=== PATIENT | female | born 1970 | race Caucasian/White ===

== ENCOUNTER 2017-09-27 05:08 | Inpatient (IN) ==
--- NOTE | 2017-09-27 05:49 | Emergency Department Note ---
Disposition Clinical Impression: Periumbilical pain, Epigastric pain Nausea and vomiting Qualifiers: Vomiting type: unspecified Vomiting Intractability: non-intractable Qualified Code(s): R11.2 - Nausea with vomiting, unspecified Disposition: Still a Patient Condition: Good Referrals: Reza Gomes DO [Primary Care Provider] - Forms: ED Satisfaction Letter, Work/School Release Time of Disposition: 07:23 Abdominal Pain HPI - General Chief Complaint: ED Abdominal Pain Stated Complaint: abdominal pain Time Seen by Provider: 09/27/17 05:14 Source: patient, family Mode of arrival: ambulatory Nursing Notes Reviewed: Yes Vital Signs Reviewed: Yes - History of Present Illness HPI Narrative: Patient is a 46 yo female with PMHx of castro syndrome and Barretts esophagus. She presents today due to periumbilical and epigastric pain that woke her up out of sleep about 5 hours prior to arrival. Patient admits to occasional abdominal discomfort over the past few days as well. She admits to nausea, vomiting, and possibly one episode of coffee ground emesis. She denies any chest pain, shortness of breath, fevers, diarrhea, blood in stool. denies any history of diverticulitis, GERD, gastric ulcers, gastritis. 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 She has had appendectomy, cholecystectomy, partial hysterectomy. Pain Scale: 8 - Related Data Home Medications Medication Instructions Recorded Confirmed Estrogens, Conjugated [Premarin] 0.9 mg PO DAILY 06/28/16 09/27/17 Furosemide [Lasix] 20 mg PO DAILY 09/27/17 09/27/17 Allergies Allergy/AdvReac Type Severity Reaction Status Date / Time morphine AdvReac Nausea Verified 09/27/17 05:10 All systems ED: reviewed and negative except as stated. Constitutional: Denies: fever Cardiovascular: Denies: chest pain, palpitations Respiratory: Denies: cough, dyspnea, wheezes Gastrointestinal: Reports: abdominal pain, nausea, vomiting, other (coffe ground emesis). Denies: diarrhea, constipation Genitourinary: Denies: urgency, dysuria, frequency Neurological: Denies: headache, weakness, numbness Abdominal Pain PMH - Past Medical History Medical history: Reports: kidney stones Female Surgical History: Reports: cholecystectomy, hysterectomy Psychiatric history: Reports: no psych history - Social History Smoking status: Never smoker Alcohol use: Reports: none Drug use: Reports: none Physical Exam - General Limitations: no limitations General appearance: alert - Head Head exam: atraumatic, normocephalic, normal inspection - Eye Eye exam: Present: normal appearance, PERRL, EOMI - ENT ENT exam: normal exam, normal oropharynx, mucous membranes moist - Neck Neck exam: Present: normal inspection, full ROM, trachea midline - Chest Chest inspection: Present: normal inspection, symmetric chest wall rise - Respiratory Respiratory exam: Present: normal lung sounds bilaterally - Cardiovascular Cardiovascular exam: Present: regular rate, normal rhythm, normal heart sounds - Abdominal Exam Abdominal exam: Present: soft, tenderness (mild to moderate epigastric and periumbilical tenderness ). Absent: distention, guarding, rebound, rigidity, Herrera's sign, tenderness at McBurney's Point - Extremities Exam Extremities exam: Present: normal inspection, full ROM. Absent: tenderness, pedal edema - Neurological Exam Neurological exam: Present: alert, oriented X3 - Psychiatric Psychiatric exam: Present: normal affect, normal mood - Skin Skin exam: Present: warm, dry, intact, normal color Course Course Narrative: Vitals WNL on my exam. Physical exam shows mild to moderate epigastric and periumbilical tenderness. The rest of the physical exam was fairly benign. Patient was offered GI cocktail and she refused at this time. She was willing to try fentanyl and zofran for pain and nausea control. I also ordered NS bolus. Basic bloodwork, CBC, BMP, LFTs, UA ordered. UA negative. Basic bloodwork still pending. CT abd and pelvis with IV contrast ordered for further eval of abdominal pain - currently pending. Patient will be signed out to day team Dr. Deangelo Knox and Dr. Cata Albright for further care. Vital Signs Temperature 97.4 F L 09/27/17 05:11 Pulse Rate 100 09/27/17 05:11 Respiratory Rate 16 09/27/17 05:11 Blood Pressure 121/83 09/27/17 05:11 O2 Sat by Pulse Oximetry 99 09/27/17 05:11 Temperature 97.4 F L 09/27/17 05:11 Pulse Rate 81 09/27/17 08:24 Respiratory Rate 18 09/27/17 08:24 Blood Pressure 117/78 09/27/17 08:24 O2 Sat by Pulse Oximetry 98 09/27/17 08:24 Oxygen Delivery Oxygen Delivery Room Air Abdominal Pain - MDM Narrative Medical decision making narrative: Vitals WNL on my exam. Physical exam shows mild to moderate epigastric and periumbilical tenderness. The rest of the physical exam was fairly benign. Patient was offered GI cocktail and she refused at this time. She was willing to try fentanyl and zofran for pain and nausea control. I also ordered NS bolus. Basic bloodwork, CBC, BMP, LFTs, UA ordered. UA negative. Basic bloodwork still pending. CT abd and pelvis with IV contrast ordered for further eval of abdominal pain - currently pending. Patient will be signed out to day team Dr. Deangelo Knox and Dr. Cata Albright for further care. - Medical Records Medical records reviewed: Yes I reviewed the patient's medical records. - Lab Data Lab results reviewed: Yes I reviewed the patient's lab results. Result diagrams: 09/27/17 07:39 09/27/17 05:58 Lab Results 09/27/17 09/27/17 09/27/17 Range/Units 05:18 05:58 05:58 WBC 28.2 H (4.3-11.1) K/mcL RBC 4.66 (3.82-4.97) M/mcL Hgb 13.4 (11.5-15.4) g/dL Hct 39.5 (35.3-44.9) % MCV 84.8 (83.0-100.0) fL MCH 28.8 (28.0-33.3) pg MCHC 33.9 (31.6-35.5) g/dL RDW 14.9 H (11.5-14.5) % Plt Count 1069 H (140-400) K/mcL MPV 9.9 (9.4-12.4) fL Seg Neutrophils % 74.0 % Band Neutrophils % 2.0 (0-4) % Lymphocytes % 16.0 % Monocytes % % Eosinophils % % Basophils % 4.0 % Myelocytes % 4.0 H (0) % Neutrophils # 21.4 H (1.6-8.9) K/mcL Lymphocytes # 4.5 (0.6-4.6) K/mcL Monocytes # (0.0-1.3) K/mcL Eosinophils # (0.0-0.6) K/mcL Basophils # 1.1 H (0.0-0.2) K/mcL Platelet Estimate Marked Increase H (Normal) Hypochromasia Present A (Not Present) Sodium 138 (136-145) mEq/L Potassium 3.6 (3.5-5.1) mEq/L Chloride 104 (98-107) mEq/L Carbon Dioxide 23 (23-29) mEq/L BUN 20 (6-20) mg/dL Creatinine 0.75 (0.60-1.20) mg/dL Est GFR ( Amer) > 60 (> 60) Est GFR (Non-Af Amer) > 60 (> 60) BUN/Creatinine Ratio 27 H (6-26) Glucose 109 H (70-105) mg/dL Calculated Osmolality 289 (280-300) Lactic Acid (0.5-2.2) mmol/L Calcium 9.8 (8.6-10.3) mg/dL Total Bilirubin 0.5 (0.3-1.0) mg/dL Direct Bilirubin 0.1 (0.0-0.2) mg/dL Indirect Bilirubin 0.4 (0.0-1.2) mg/dL AST 15 (13-39) Units/L ALT 10 (7-52) Units/L Alkaline Phosphatase 49 (34-104) Units/L Serum Total Protein 6.9 (6.4-8.9) g/dL Albumin 4.2 (3.5-5.7) g/dL Globulin 2.7 (2.4-3.5) g/dL Albumin/Globulin Ratio 1.6 (1.1-2.2) Amylase 34 (29-103) Units/L Lipase 8 L (11-82) Units/L Urine Color Yellow (Yellow) Urine Clarity Clear (Clear) Urine pH 8.5 H (5.0-8.0) pH Units Ur Specific [place] 1.021 (1.010-1.025) Urine Protein 30 H (Neg-Trace) mg/dL Urine Glucose (UA) Normal (Normal) mg/dL Urine Ketones Negative (Negative) mg/dL Urine Blood Negative (Negative) Urine Nitrite Negative (Negative) Urine Bilirubin Negative (Negative) Urine Urobilinogen Normal (Normal) mg/dL Ur Leukocyte Esterase Negative (Negative) Urine Microscopic RBC 0-3 (0-3) per hpf Urine Microscopic WBC 0-3 (0-3) per hpf Ur Squamous Epith Cells Moderate H (None-Few) per lpf Urine Bacteria None Seen (None-Few) per hpf Hyaline Casts None Seen (None-Few) per lpf Ur Culture Indicated? NO (NO) 09/27/17 09/27/17 Range/Units 07:39 07:39 WBC 29.6 H (4.3-11.1) K/mcL RBC 4.44 (3.82-4.97) M/mcL Hgb 12.8 (11.5-15.4) g/dL Hct 38.3 (35.3-44.9) % MCV 86.3 (83.0-100.0) fL MCH 28.8 (28.0-33.3) pg MCHC 33.4 (31.6-35.5) g/dL RDW 14.9 H (11.5-14.5) % Plt Count 1012 H (140-400) K/mcL MPV 9.8 (9.4-12.4) fL Seg Neutrophils % 84.0 % Band Neutrophils % (0-4) % Lymphocytes % 12.0 % Monocytes % 2.0 % Eosinophils % 2.0 % Basophils % % Myelocytes % (0) % Neutrophils # 24.9 H (1.6-8.9) K/mcL Lymphocytes # 3.6 (0.6-4.6) K/mcL Monocytes # 0.6 (0.0-1.3) K/mcL Eosinophils # 0.6 (0.0-0.6) K/mcL Basophils # (0.0-0.2) K/mcL Platelet Estimate Marked Increase H (Normal) Hypochromasia (Not Present) Sodium (136-145) mEq/L Potassium (3.5-5.1) mEq/L Chloride (98-107) mEq/L Carbon Dioxide (23-29) mEq/L BUN (6-20) mg/dL Creatinine (0.60-1.20) mg/dL Est GFR ( Amer) (> 60) Est GFR (Non-Af Amer) (> 60) BUN/Creatinine Ratio (6-26) Glucose (70-105) mg/dL Calculated Osmolality (280-300) Lactic Acid 0.8 (0.5-2.2) mmol/L Calcium (8.6-10.3) mg/dL Total Bilirubin (0.3-1.0) mg/dL Direct Bilirubin (0.0-0.2) mg/dL Indirect Bilirubin (0.0-1.2) mg/dL AST (13-39) Units/L ALT (7-52) Units/L Alkaline Phosphatase (34-104) Units/L Serum Total Protein (6.4-8.9) g/dL Albumin (3.5-5.7) g/dL Globulin (2.4-3.5) g/dL Albumin/Globulin Ratio (1.1-2.2) Amylase (29-103) Units/L Lipase (11-82) Units/L Urine Color (Yellow) Urine Clarity (Clear) Urine pH (5.0-8.0) pH Units Ur Specific [place] (1.010-1.025) Urine Protein (Neg-Trace) mg/dL Urine Glucose (UA) (Normal) mg/dL Urine Ketones (Negative) mg/dL Urine Blood (Negative) Urine Nitrite (Negative) Urine Bilirubin (Negative) Urine Urobilinogen (Normal) mg/dL Ur Leukocyte Esterase (Negative) Urine Microscopic RBC (0-3) per hpf Urine Microscopic WBC (0-3) per hpf Ur Squamous Epith Cells (None-Few) per lpf Urine Bacteria (None-Few) per hpf Hyaline Casts (None-Few) per lpf Ur Culture Indicated? (NO) S.B.A.R. - S.B.A.R. Situation: Demographics, MOA Background: Presenting Complaint, Relevant PMH, Meds, & Allergies Assessment: Vital Signs, Course and respsone to treatment, Exam Concerns, Patient/Family Expectation, Pertinant Lab Results, Outstanding Labs Recommendation: Barrier(s) to disposition, Recommendation based on pending studies, treatments, or consults S.B.A.R. Report Given to: Dr. Cata Albright, Dr. Madison Knox S.B.A.R. Repor Time: 07:23 Attestation Statement - Attestation Attestation: I, Ignacio Savage MD, personally evaluated this patient and discussed their management with the resident physician. I reviewed the resident's note and agree with the documented findings, medical decision making, and plan of care. 46-year-old female presents to the emergency department with a complaint of awakening from sleep about 1:30 AM today with severe periumbilical abdominal pain and also epigastric abdominal pain. The pain does radiate to the back. Associated with nausea and vomiting. Patient states she has had some mild lower abdominal discomfort for the past few days but not severe pain like this. No prior history of similar episodes. No fever. No urinary symptoms. On examination patient is a well-developed well-nourished well-appearing female in no acute distress. She is alert and oriented 3. There is no cyanosis or diaphoresis. Breath sounds are clear and equal bilaterally. Heart regular rate and rhythm. Abdomen is soft with decreased bowel sounds. There is moderate epigastric and periumbilical tenderness with mild guarding. No rebound tenderness. No CVA tenderness. Workup initiated. At shift change patient is signed out to the oncoming dayshift team, Dr. Deangelo Knox and Dr. Cata Albright.
[2017-09-27 05:52] LABS: Bilirubin,Urine Negative (Negative); Blood,Urine Negative (Negative); Clarity,Urine Clear (Clear); Color,Urine Yellow (Yellow); Glucose,Urine (UA) Normal (Normal); Ketones,Urine Negative (Negative); Leukocyte Esterase,Urine Negative (Negative); Nitrite,Urine Negative (Negative); PH,Urine 8.5 pH Units (5.0-8.0); Protein,Urine 30 mg/dL (Neg-Trace); Specific Gravity,Urine 1.021 (1.010-1.025); Urobilinogen,Urine Normal (Normal)
[2017-09-27 05:54] LABS: Bacteria,Urine None Seen per hpf (None-Few); Hyaline Casts,Urine None Seen per lpf (None-Few); RBC,Urine 0-3 per hpf (0-3); Squamous Epithelial Cell,Urine Moderate per lpf (None-Few); WBC,Urine 0-3 per hpf (0-3)
[2017-09-27] MEDS ORDERED: 0.9 % Sodium Chloride 1,000 ML IVC ONE (06:09)
[2017-09-27] MEDS ORDERED: *HR* FentaNYL (PF) 100 MCG/2 ML VIAL IVP ONE ×2 (06:09→08:33)
[2017-09-27] MEDS ORDERED: Ondansetron 4 MG/2 ML VIAL IVP ONE ×2 (06:09→08:24)
[2017-09-27 06:17] LABS: Hematocrit 39.5 % (35.3-44.9); Hemoglobin 13.4 g/dL (11.5-15.4); Mean Corpuscular HGB Conc 33.9 g/dL (31.6-35.5); Mean Corpuscular Hemoglobin 28.8 pg (28.0-33.3); Mean Corpuscular Volume 84.8 fL (83.0-100.0); Mean Platelet Volume 9.9 fL (9.4-12.4); Platelet Count 1069 K/mcL (140-400); Red Blood Count 4.66 M/mcL (3.82-4.97); Red Cell Distribution Width 14.9 % (11.5-14.5)
[2017-09-27 06:52] LABS: Basophils # 1.1 K/mcL (0.0-0.2); Hypochromasia Present (Not Present); Lymphocytes # 4.5 K/mcL (0.6-4.6); Neutrophils # 21.4 K/mcL (1.6-8.9)
[2017-09-27 06:53] LABS: Platelet Estimate Marked Increase (Normal)
[2017-09-27 07:22] LABS: Alanine Aminotransferase 10 Units/L (7-52); Albumin 4.2 g/dL (3.5-5.7); Albumin/Globulin Ratio 1.6 (1.1-2.2); Alkaline Phosphatase 49 Units/L (34-104); Amylase 34 Units/L (29-103); Aspartate Amino Transferase 15 Units/L (13-39); BUN/Creatinine Ratio 27 (6-26); Bilirubin,Direct 0.1 mg/dL (0.0-0.2); Bilirubin,Indirect 0.4 mg/dL (0.0-1.2); Bilirubin,Total 0.5 mg/dL (0.3-1.0); Blood Urea Nitrogen 20 mg/dL (6-20); Calcium 9.8 mg/dL (8.6-10.3); Carbon Dioxide 23 mEq/L (23-29); Chloride 104 mEq/L (98-107); Globulin 2.7 g/dL (2.4-3.5); Glucose 109 mg/dL (70-105); Lipase 8 Units/L (11-82); Osmolality,Calculated 289 (280-300); Potassium 3.6 mEq/L (3.5-5.1); Sodium 138 mEq/L (136-145); Total Protein 6.9 g/dL (6.4-8.9); eGFR For African Americans > 60 (> 60); eGFR For Non-African Americans > 60 (> 60)
--- NOTE | 2017-09-27 07:39 | Emergency Department Note ---
Disposition Clinical Impression: Ileus, High platelet count Leukocytosis Qualifiers: Leukocytosis type: unspecified Qualified Code(s): D72.829 - Elevated white blood cell count, unspecified Disposition: Admitted As Inpatient Condition: Good Time of Disposition: 09:34 General Adult HPI - General Chief complaint: ED Abdominal Pain Stated complaint: abdominal pain Time Seen by Provider: 09/27/17 05:14 Source: patient, family Mode of arrival: ambulatory Limitations: no limitations Nursing Notes Reviewed: Yes Vital Signs Reviewed: Yes - History of Present Illness HPI Narrative: 46-year-old female with known past medical history of Keane's esophagus and Linch syndrome presenting to the emergency Department chief complaint of periumbilical abdominal pain. Patient states her abdominal pain woke her up out of her sleep at approximately 3 AM. She states the pain was 10 out of 10. She has had nausea and vomiting. She was concerned the vomit was coffee-ground but also states she had lots of broccoli last evening and thought this could be associated with that. She denies any blood in her her vomit or blood in her stool. Denies any tar-colored stools. Patient states last colonoscopy was in June. She is due for her endoscopy soon. She follows with Dr. De La Cruz. Patient discloses an appendectomy, cholecystectomy approximately 16 years ago and hysterectomy. Pain Scale: 8 - Related Data Home Medications Medication Instructions Recorded Confirmed Estrogens, Conjugated [Premarin] 0.9 mg PO DAILY 06/28/09/27/17 Furosemide [Lasix] 20 mg PO DAILY 09/27/17 09/27/17 Allergies Allergy/AdvReac Type Severity Reaction Status Date / Time morphine AdvReac Nausea Verified 09/27/17 05:10 All systems ED: reviewed and negative except as stated. Constitutional: Denies: fever Cardiovascular: Denies: chest pain, palpitations Respiratory: Denies: cough, dyspnea, wheezes Gastrointestinal: Reports: abdominal pain, nausea, vomiting, other (coffe ground emesis). Denies: diarrhea, constipation Genitourinary: Denies: urgency, dysuria, frequency Neurological: Denies: headache, weakness, numbness Past Medical History - Past Medical History Attestation: Yes The following information was validated with the patient. Medical history: Reports: kidney stones Surgical history: Reports: , cholecystectomy, hysterectomy Psychiatric history: Reports: no psych history - Social History Smoking Status: Never smoker Alcohol use: Reports: none Drug use: Reports: none Physical Exam - General Limitations: no limitations General appearance: alert, in no apparent distress - Head Head exam: atraumatic, normocephalic, normal inspection - Eye Eye exam: Present: normal appearance. Absent: scleral icterus, conjunctival injection - ENT ENT exam: normal exam, mucous membranes moist - Neck Neck exam: Present: normal inspection, full ROM. Absent: tenderness, meningismus - Chest Chest inspection: Present: normal inspection, symmetric chest wall rise. Absent : tenderness, rash - Respiratory Respiratory exam: Present: normal lung sounds bilaterally. Absent: respiratory distress, wheezes - Cardiovascular Cardiovascular exam: Present: regular rate, normal rhythm, normal heart sounds - Abdominal Exam Abdominal exam: Present: soft, tenderness. Absent: distention, guarding, rebound, rigidity, organomegaly Abdominal tenderness: Present: moderate (periumbilical) - Extremities Exam Extremities exam: Present: normal inspection, full ROM - Neurological Exam Neurological exam: Present: alert, oriented X3 - Psychiatric Psychiatric exam: Present: normal affect, normal mood - Skin Skin exam: Present: warm, intact Course Course Narrative: 46-year-old female presenting to the emergency Department chief complaint of periumbilical pain. Patient has no known Castro syndrome. On exam patient has moderate to severe abdominal pain in the periumbilical area. Her symptoms are under control with fentanyl and Zofran. Patient is alert and oriented 3 in the room with stable vital signs. We will obtain basic lab work including CBC, CMP, lipase along with CT of abdomen and pelvis with IV contrast. Disposition pending these results. Patient agrees with this plan. - Reevaluation(s) Reevaluation #1: Initial CBC shows elevated white blood cell count and platelets. This was redrawn and recently run and still has elevated white blood cell count at 29.6 and platelets greater than 1000. Patient states she has never been told she has high platelets. CT of the abdomen and pelvis shows ileus with enteritis versus small bowel obstruction with no definitive transition point. Lactic acid within normal limits. Patient's pain control at this time. We will plan to admit the patient for further evaluation of her ileus and elevated white blood cell count and platelets. Patient is alert and oriented 3 in the room with stable vital signs. She agrees this plan. I spoke with the admitting hospitalist Dr. Greer who agrees to accept the patient at this time. Vital Signs Temperature 97.4 F L 09/27/17 05:11 Pulse Rate 100 09/27/17 05:11 Respiratory Rate 16 09/27/17 05:11 Blood Pressure 121/83 09/27/17 05:11 O2 Sat by Pulse Oximetry 99 09/27/17 05:11 Temperature 97.4 F L 09/27/17 05:11 Pulse Rate 81 09/27/17 08:24 Respiratory Rate 16 09/27/17 09:37 Blood Pressure 109/72 09/27/17 09:37 O2 Sat by Pulse Oximetry 98 09/27/17 08:24 Oxygen Delivery Oxygen Delivery Room Air Medical Decision Making - Lab Data Lab results reviewed: Yes I reviewed the patient's lab results. Result diagrams: 09/27/17 07:39 09/27/17 05:58 Lab Results 09/27/17 09/27/17 09/27/17 Range/Units 05:18 05:58 05:58 WBC 28.2 H (4.3-11.1) K/mcL RBC 4.66 (3.82-4.97) M/mcL Hgb 13.4 (11.5-15.4) g/dL Hct 39.5 (35.3-44.9) % MCV 84.8 (83.0-100.0) fL MCH 28.8 (28.0-33.3) pg MCHC 33.9 (31.6-35.5) g/dL RDW 14.9 H (11.5-14.5) % Plt Count 1069 H (140-400) K/mcL MPV 9.9 (9.4-12.4) fL Seg Neutrophils % 74.0 % Band Neutrophils % 2.0 (0-4) % Lymphocytes % 16.0 % Monocytes % % Eosinophils % % Basophils % 4.0 % Myelocytes % 4.0 H (0) % Neutrophils # 21.4 H (1.6-8.9) K/mcL Lymphocytes # 4.5 (0.6-4.6) K/mcL Monocytes # (0.0-1.3) K/mcL Eosinophils # (0.0-0.6) K/mcL Basophils # 1.1 H (0.0-0.2) K/mcL Platelet Estimate Marked Increase H (Normal) Hypochromasia Present A (Not Present) Sodium 138 (136-145) mEq/L Potassium 3.6 (3.5-5.1) mEq/L Chloride 104 (98-107) mEq/L Carbon Dioxide 23 (23-29) mEq/L BUN 20 (6-20) mg/dL Creatinine 0.75 (0.60-1.20) mg/dL Est GFR ( Amer) > 60 (> 60) Est GFR (Non-Af Amer) > 60 (> 60) BUN/Creatinine Ratio 27 H (6-26) Glucose 109 H (70-105) mg/dL Calculated Osmolality 289 (280-300) Lactic Acid (0.5-2.2) mmol/L Calcium 9.8 (8.6-10.3) mg/dL Total Bilirubin 0.5 (0.3-1.0) mg/dL Direct Bilirubin 0.1 (0.0-0.2) mg/dL Indirect Bilirubin 0.4 (0.0-1.2) mg/dL AST 15 (13-39) Units/L ALT 10 (7-52) Units/L Alkaline Phosphatase 49 (34-104) Units/L Serum Total Protein 6.9 (6.4-8.9) g/dL Albumin 4.2 (3.5-5.7) g/dL Globulin 2.7 (2.4-3.5) g/dL Albumin/Globulin Ratio 1.6 (1.1-2.2) Amylase 34 (29-103) Units/L Lipase 8 L (11-82) Units/L Urine Color Yellow (Yellow) Urine Clarity Clear (Clear) Urine pH 8.5 H (5.0-8.0) pH Units Ur Specific [place] 1.021 (1.010-1.025) Urine Protein 30 H (Neg-Trace) mg/dL Urine Glucose (UA) Normal (Normal) mg/dL Urine Ketones Negative (Negative) mg/dL Urine Blood Negative (Negative) Urine Nitrite Negative (Negative) Urine Bilirubin Negative (Negative) Urine Urobilinogen Normal (Normal) mg/dL Ur Leukocyte Esterase Negative (Negative) Urine Microscopic RBC 0-3 (0-3) per hpf Urine Microscopic WBC 0-3 (0-3) per hpf Ur Squamous Epith Cells Moderate H (None-Few) per lpf Urine Bacteria None Seen (None-Few) per hpf Hyaline Casts None Seen (None-Few) per lpf Ur Culture Indicated? NO (NO) 09/27/17 09/27/17 Range/Units 07:39 07:39 WBC 29.6 H (4.3-11.1) K/mcL RBC 4.44 (3.82-4.97) M/mcL Hgb 12.8 (11.5-15.4) g/dL Hct 38.3 (35.3-44.9) % MCV 86.3 (83.0-100.0) fL MCH 28.8 (28.0-33.3) pg MCHC 33.4 (31.6-35.5) g/dL RDW 14.9 H (11.5-14.5) % Plt Count 1012 H (140-400) K/mcL MPV 9.8 (9.4-12.4) fL Seg Neutrophils % 84.0 % Band Neutrophils % (0-4) % Lymphocytes % 12.0 % Monocytes % 2.0 % Eosinophils % 2.0 % Basophils % % Myelocytes % (0) % Neutrophils # 24.9 H (1.6-8.9) K/mcL Lymphocytes # 3.6 (0.6-4.6) K/mcL Monocytes # 0.6 (0.0-1.3) K/mcL Eosinophils # 0.6 (0.0-0.6) K/mcL Basophils # (0.0-0.2) K/mcL Platelet Estimate Marked Increase H (Normal) Hypochromasia (Not Present) Sodium (136-145) mEq/L Potassium (3.5-5.1) mEq/L Chloride (98-107) mEq/L Carbon Dioxide (23-29) mEq/L BUN (6-20) mg/dL Creatinine (0.60-1.20) mg/dL Est GFR ( Amer) (> 60) Est GFR (Non-Af Amer) (> 60) BUN/Creatinine Ratio (6-26) Glucose (70-105) mg/dL Calculated Osmolality (280-300) Lactic Acid 0.8 (0.5-2.2) mmol/L Calcium (8.6-10.3) mg/dL Total Bilirubin (0.3-1.0) mg/dL Direct Bilirubin (0.0-0.2) mg/dL Indirect Bilirubin (0.0-1.2) mg/dL AST (13-39) Units/L ALT (7-52) Units/L Alkaline Phosphatase (34-104) Units/L Serum Total Protein (6.4-8.9) g/dL Albumin (3.5-5.7) g/dL Globulin (2.4-3.5) g/dL Albumin/Globulin Ratio (1.1-2.2) Amylase (29-103) Units/L Lipase (11-82) Units/L Urine Color (Yellow) Urine Clarity (Clear) Urine pH (5.0-8.0) pH Units Ur Specific [place] (1.010-1.025) Urine Protein (Neg-Trace) mg/dL Urine Glucose (UA) (Normal) mg/dL Urine Ketones (Negative) mg/dL Urine Blood (Negative) Urine Nitrite (Negative) Urine Bilirubin (Negative) Urine Urobilinogen (Normal) mg/dL Ur Leukocyte Esterase (Negative) Urine Microscopic RBC (0-3) per hpf Urine Microscopic WBC (0-3) per hpf Ur Squamous Epith Cells (None-Few) per lpf Urine Bacteria (None-Few) per hpf Hyaline Casts (None-Few) per lpf Ur Culture Indicated? (NO) - Radiology Data Radiology results reviewed: Yes I reviewed the patient's radiology results. Abdomen/Pelvis CT 09/27/17 06:10 IMPRESSION: Diffuse fluid-filled loops of small bowel, which appear mildly dilated and could be related to underlying enteritis with mild ileus versus possible partial obstruction. No transition point is seen. Otherwise no acute process. D/ / Daquan Abdi MD / aDquan Abdi MD Interpreting Provider: Daquan Abdi MD Attestation Statement - Attestation Attestation: I examined this patient and my medical decision-making was reviewed with the Resident Physician, Dr. Bennett. I agree with the documented findings, disposition and treatment plan as described except to the extent set forth below. Patient is a 46-year-old white female with a history of Castro syndrome and Keane's esophagus who presented to the emergency department and initially evaluated by Dr. Savage in the assembler 1st shift team for epigastric and periUmbilical abdominal pain. Patient awoke from sleep approximately 1 AM and was having 8 out of 10. Umbilical and epigastric abdominal pain radiating through to her back associated with some nausea and vomiting. Vomiting was nonbilious nonbloody, no bowel changes, no fevers or chills, no urinary symptoms or back pain. Patient states over the last few days she "has not felt right" and told her that her stomach just did not feel well and she has had a decreased appetite. Patient sees on a regular basis for routine endoscopy and colonoscopy for close screenings due to her Castro syndrome and her last endoscopy showed the presence of Keane's esophagus. I agree with patient's physical exam findings as documented. On my assessment patient had a nonsurgical abdomen with no peritoneal signs. She has got mild tenderness to palpation in the epigastric and periumbilical areas of the abdomen remainder of exams unremarkable, vital signs are stable. Patient currently is rating her pain a 4 out of 10 following pain medicine and antiemetics were administered by Dr. Savage. Labs and imaging an artery been ordered prior to our assessment. We did add a lactate to her lab evaluation. Patient has a significant leukocytosis and no old labs for comparison in the system. Patient also has a thrombocytosis which is unexplained with leukocytes present. Patient's CT scan shows evidence of enteritis, possible partial small bowel obstruction with no visible transition point seen on CT. CT was done with IV contrast. Patient's hemodynamically stable and resting comfortably at this time we will go ahead and admit the patient for partial small bowel obstruction as well as further evaluation of her CBC findings. Case was discussed with hospitalist who accepted patient for admission for further evaluation and management.
[2017-09-27 07:47] LABS: Hematocrit 38.3 % (35.3-44.9); Hemoglobin 12.8 g/dL (11.5-15.4); Mean Corpuscular HGB Conc 33.4 g/dL (31.6-35.5); Mean Corpuscular Hemoglobin 28.8 pg (28.0-33.3); Mean Corpuscular Volume 86.3 fL (83.0-100.0); Mean Platelet Volume 9.8 fL (9.4-12.4); Platelet Count 1012 K/mcL (140-400); Red Blood Count 4.44 M/mcL (3.82-4.97); Red Cell Distribution Width 14.9 % (11.5-14.5)
[2017-09-27 08:21] LABS: Eosinophils # 0.6 K/mcL (0.0-0.6); Lymphocytes # 3.6 K/mcL (0.6-4.6); Monocytes # 0.6 K/mcL (0.0-1.3); Neutrophils # 24.9 K/mcL (1.6-8.9)
[2017-09-27 08:22] LABS: Platelet Estimate Marked Increase (Normal)
[2017-09-27] MEDS ORDERED: *HR* FentaNYL (PF) 100 MCG/2 ML VIAL IVP STA (11:26)
[2017-09-27] MEDS ORDERED: Ondansetron 4 MG/2 ML VIAL IVP PRN (11:52)
[2017-09-27] MEDS ORDERED: OXYCODONE Oral CONC 10 MG/0.5 ML ORAL.SYG SL PRN (11:53)
[2017-09-27] MEDS ORDERED: *HR* FentaNYL (PF) 100 MCG/2 ML VIAL IVP PRN (11:54)
--- NOTE | 2017-09-27 12:10 | Internal Med History&Physical ---
Date of Encounter: 09/27/17 Time of Encounter: 12:02 Assessment and Plan (1) Ileus Current visit: Yes Status: Acute NPO Continue IV fluid hydration Surgery consulted, recommendations appreciated. sublingual oxycodone prn pain with fentanyl IV for breakthrough (2) Thrombocytosis Current visit: Yes Status: Acute Likely reactive in nature, from infection and possibly dehydration. Will give IV fluids and antibiotics and recheck if further evaluation is needed. (3) Enteritis Current visit: Yes Status: Acute Cipro/FLagyl, stool cultures, monitor WBC levels Currently in no acute distress, afebrile. Check CRP (4) Leukocytosis Current visit: Yes Status: Acute Qualifiers: Leukocytosis type: unspecified Qualified Code(s): D72.829 - Elevated white blood cell count, unspecified Internal Medicine - H&P: HPI History of present illness: Ms. 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 Patient woke suddenly from sleep. She complained of 5 episodes of emesis that appeared coffee ground but she is unsure if that was instead food. She states this pain is similar to ileus pain she experienced years ago. She denies fevers, diarrhea , chest pain. In ED patient had CT of abdomen/pelvis that should ileus vs partial SBO with possible enteritis. Lactic acid was within normal limtis. She had leukocytosis of 29k and thrombocytosis of 1,012. She was given 1L IV fluid, Fentanyl, and Zofran. Past Med Surg Social Fam HX - Past Medical History Medical history: kidney stones Psychiatric history: no psych history - Past Surgical History Surgical History: , cholecystectomy, hysterectomy - Social History Smoking Status: Never smoker Smokeless Tobacco Status: No Alcohol use: none Drug use: none - Family History Father Name: Gary Age: 56 Hx Family Cancer: Yes (colon and prostate) Internal Medicine - H&P: Meds Estrogens, Conjugated [Premarin] 0.9 mg PO DAILY 06/28/16 [History] Furosemide [Lasix] 20 mg PO DAILY 09/27/17 [History] 3 Allergy/AdvReac Type Severity Reaction Status Date / Time morphine AdvReac Nausea Verified 09/27/17 05:10 All Systems PM: A 10-system review of systems was performed and is negative for pertinent findings except as documented above in the HPI. Review of systems: as per HPI - Constitutional Vitals: Temp Pulse Resp BP Pulse Ox 98.0 F 63 16 99/68 98 09/27/17 09:53 09/27/17 09:53 09/27/17 09:53 09/27/17 09:53 09/27/17 09:53 - Head Head exam: Present: atraumatic, normocephalic - Eye Eye exam: Present: PERRL, conjuntiva pink, sclera anicteric Pupils: Present: PERRL - Neck Neck exam general surgery: Present: supple, trachea midline. Absent: lymphadenopathy - Respiratory Respiratory exam: Present: CTAB. Absent: accessory muscle use, rales, rhonchi, wheezes - Cardiovascular Cardiovascular exam: Present: RRR, +S1, +S2. Absent: diastolic murmur, gallop, rubs, systolic murmur - GI/Abdominal GI/Abdominal exam: Present: normal bowel sounds, soft, tenderness, no peritoneal signs. Absent: distended - Extremities Exam Extremities exam: Present: warm, radial pulses palpable and symmetrical. Absent : calf tenderness, cyanotic, pedal edema - Neurological Exam Neurological exam: Present: CN II-XII intact, oriented X3, no focal deficits. Absent: pronater drift, facial droop, speech deficit - Skin Skin exam: Present: dry, intact Internal Med - H&P Results - Labs CBC & Chem 7: 09/27/17 07:39 09/27/17 05:58
[2017-09-27] MEDS: 0.9 % Sodium Chloride 1,000 ML IVC SCH ×2 (12:11→16:51)
[2017-09-27] MEDS ORDERED: *HR* Promethazine 25 MG/ML VIAL IM PRN (14:45)
[2017-09-27] MEDS ORDERED: *HR* Promethazine 25 MG/ML VIAL ONE (14:48)
[2017-09-27] MEDS: MetroNIDAZOLE 500 MG/100 ML 500 MG/100 ML BAG IVPB SCH (16:49)
[2017-09-28] MEDS: MetroNIDAZOLE 500 MG/100 ML 500 MG/100 ML BAG IVPB SCH ×4 (00:20→23:50)
[2017-09-28] MEDS: 0.9 % Sodium Chloride 1,000 ML IVC SCH ×20 (04:08→22:34)
[2017-09-28] MEDS: *HR* Enoxaparin 40 MG/0.4 ML SYRINGE SQ SCH (05:18)
[2017-09-28 06:22] LABS: Basophils # 0.9 K/mcL (0.0-0.2); Basophils % 4.8 %; Eosinophils # 0.5 K/mcL (0.0-0.6); Hematocrit 34.1 % (35.3-44.9); Immature Granulocytes % 5.3 % (0-4); Lymphocytes # 2.7 K/mcL (0.6-4.6); Lymphocytes % 15.2 %; Mean Corpuscular HGB Conc 32.3 g/dL (31.6-35.5); Mean Corpuscular Hemoglobin 28.9 pg (28.0-33.3); Mean Corpuscular Volume 89.5 fL (83.0-100.0); Mean Platelet Volume 10.2 fL (9.4-12.4); Monocytes # 0.6 K/mcL (0.0-1.3); Monocytes % 3.1 %; Platelet Count 791 K/mcL (140-400); Red Blood Count 3.81 M/mcL (3.82-4.97); Red Cell Distribution Width 15.4 % (11.5-14.5); Segmented Neutrophils % 68.6 %
[2017-09-28 06:30] LABS: BUN/Creatinine Ratio 16 (6-26); Blood Urea Nitrogen 12 mg/dL (6-20); Carbon Dioxide 21 mEq/L (23-29); Chloride 113 mEq/L (98-107); Glucose 85 mg/dL (70-105); Osmolality,Calculated 291 (280-300); Potassium 3.8 mEq/L (3.5-5.1); Sodium 141 mEq/L (136-145); eGFR For African Americans > 60 (> 60); eGFR For Non-African Americans > 60 (> 60)
[2017-09-28 06:42] LABS: Neutrophils # 12.1 K/mcL (1.6-8.9)
[2017-09-28 07:05] LABS: Platelet Estimate Marked Increase (Normal); Reactive Lymphocytes Present (Not Present); Toxic Granulation Present (Not Present)
[2017-09-28] MEDS: Acetaminophen 325 MG TABLET PO PRN ×2 (10:16→20:07)
--- NOTE | 2017-09-28 15:02 | General Surgery Progress Note ---
Date of Encounter: 09/28/17 Time of Encounter: 14:20 Subjective Patient reports: feels better, tolerating liquids well, bowel movement Narrative: General Surgery - 46-year-old female referred for further evaluation and treatment new-onset abdominal pain with nausea, vomiting, and possible coffee ground emesis. CT showed fluid-filled, dilated loops of small bowel extending to the cecum. The colon was filled with stool. Surgical consultation was placed due to concerns for a partial small bowel obstruction. The patient is well known to me later to several surgeries including exploratory celiotomy, bilateral salpingo-oophorectomy, lysis of adhesions with release of small bowel obstruction proximally 14 years ago. On my presentation the bedside today, patient is feeling much improved with resolution of the abdominal pain, nausea and vomiting. There is no obvious abdominal distention. The patient is tolerating clear liquids and has moved her bowels. Possible viral gastroenteritis v dehydration v transient partial SBO - resolved. Recommendations: advance diet to regular as tolerated; if no recurrent abdominal symptoms such as distention, bloating, pain, N or V may be discharged home in the AM with outpatient followup my office as needed. The patient was examined with discussion / recommendation as noted. Objective Vital Signs - Last 8 Hours Temp Pulse Resp BP Pulse Ox 09/28/17 11:06 98.4 F 75 18 100/64 98 09/28/17 07:22 98.6 F 67 18 95/62 98 Intake and Output 09/27/17 09/28/17 09/28/17 23:59 07:59 15:59 Intake Total 300 / 300 100 / 100 0 / 0 Output Total 0 / 0 500 / 500 0 / 0 Balance 300 / 300 -400 / -400 0 / 0 Intake: IV Fluids 300 / 300 100 / 100 Cipro Premix 400 MG/200 ML 400 200 / 200 mg In 200 ml @ 200 mls/hr IVPB Q12HR [facility] Rx#:[id number] Flagyl Premix 500 MG/100 ML 500 100 / 100 100 / 100 mg In 100 ml @ 100 mls/hr IVPB Q8HR [facility] Rx#:[id number] Oral 0 / 0 0 / 0 0 / 0 Output: Urine 0 / 0 500 / 500 0 / 0 Other: Meal NPO Stool Size Small Stool Consistency formed Stool Color Brown # Voids 2 # Bowel Movements 1 Weight 71.25 kg Blood Glucose* 77 93 64 Patient Weight 09/28/17 23:59 Weight 71.25 kg - Labs 09/28/17 05:40 09/28/17 05:40 Diabetes panel 09/28/17 Range/Units 05:40 Sodium 141 (136-145) mEq/L Potassium 3.8 (3.5-5.1) mEq/L Chloride 113 H (98-107) mEq/L Carbon Dioxide 21 L (23-29) mEq/L BUN 12 (6-20) mg/dL Creatinine 0.76 (0.60-1.20) mg/dL Glucose 85 (70-105) mg/dL Calcium 8.0 L (8.6-10.3) mg/dL Calcium panel 09/28/17 Range/Units 05:40 Calcium 8.0 L (8.6-10.3) mg/dL Pituitary panel 09/28/17 Range/Units 05:40 Sodium 141 (136-145) mEq/L Potassium 3.8 (3.5-5.1) mEq/L Chloride 113 H (98-107) mEq/L Carbon Dioxide 21 L (23-29) mEq/L BUN 12 (6-20) mg/dL Creatinine 0.76 (0.60-1.20) mg/dL Glucose 85 (70-105) mg/dL Calcium 8.0 L (8.6-10.3) mg/dL Adrenal panel 09/28/17 Range/Units 05:40 Sodium 141 (136-145) mEq/L Potassium 3.8 (3.5-5.1) mEq/L Chloride 113 H (98-107) mEq/L Carbon Dioxide 21 L (23-29) mEq/L BUN 12 (6-20) mg/dL Creatinine 0.76 (0.60-1.20) mg/dL Glucose 85 (70-105) mg/dL Calcium 8.0 L (8.6-10.3) mg/dL Consult Discharge Plan - Plan Referrals: Reza Gomes DO [Primary Care Provider] -
--- NOTE | 2017-09-28 17:18 | Internal Med Progress Note ---
Date of Encounter: 09/28/17 Time of Encounter: 10:00 - Assessment and plan (1) Enteritis Current Visit: Yes Status: Acute Assessment and plan: -Patient's abdominal discomfort has improved on IV Cipro/Flagyl -Patient also reports a bowel movement -Patient's leukocytosis has also improved -Gen. surgery following with recommendations to advance diet as tolerates (2) Thrombocytosis Current Visit: Yes Status: Acute Assessment and plan: Suspect reactive but we will continue to follow - Subjective Interval history: Patient reports decreased abdominal discomfort this morning and requesting by mouth She also reports having a bowel movement - Constitutional Vitals: Temp Pulse Resp BP Pulse Ox 99.0 F 87 18 98/63 97 09/28/17 15:01 09/28/17 15:01 09/28/17 15:01 09/28/17 15:01 09/28/17 15:01 General appearance: Present: no acute distress - Respiratory Respiratory exam: Present: CTAB. Absent: accessory muscle use, rales, rhonchi, wheezes - Cardiovascular Cardiovascular exam: Present: RRR, +S1, +S2. Absent: diastolic murmur, gallop, rubs, systolic murmur - GI/Abdominal GI/Abdominal exam: Present: soft, tenderness (Mild general abdominal tenderness to palpation). Absent: distended Internal Medicine: Result - Labs CBC & Chem 7: 09/28/17 05:40 09/28/17 05:40 Labs: Short CBC 09/28/17 Range/Units 05:40 WBC 17.7 H (4.3-11.1) K/mcL Hgb 11.0 L D (11.5-15.4) g/dL Hct 34.1 L (35.3-44.9) % Plt Count 791 H (140-400) K/mcL Neutrophils # 12.1 H (1.6-8.9) K/mcL BMP 09/28/17 05:40 Sodium 141 Potassium 3.8 Chloride 113 H Carbon Dioxide 21 L BUN 12 Creatinine 0.76 Glucose 85 Calcium 8.0 L Consult Discharge Plan - Plan Referrals: Reza Gomes DO [Primary Care Provider] -
[2017-09-28 18:43] LABS: Hematocrit 34.7 % (35.3-44.9); Hemoglobin 11.1 g/dL (11.5-15.4); Mean Corpuscular Hemoglobin 28.5 pg (28.0-33.3); Mean Corpuscular Volume 89.2 fL (83.0-100.0); Platelet Count 697 K/mcL (140-400); Red Blood Count 3.89 M/mcL (3.82-4.97); Red Cell Distribution Width 15.2 % (11.5-14.5)
[2017-09-28 18:46] LABS: BUN/Creatinine Ratio 13 (6-26); Blood Urea Nitrogen 10 mg/dL (6-20); Calcium 8.3 mg/dL (8.6-10.3); Carbon Dioxide 23 mEq/L (23-29); Chloride 111 mEq/L (98-107); Glucose 88 mg/dL (70-105); Osmolality,Calculated 288 (280-300); Potassium 3.4 mEq/L (3.5-5.1); Sodium 140 mEq/L (136-145); eGFR For African Americans > 60 (> 60); eGFR For Non-African Americans > 60 (> 60)
[2017-09-28 20:57] LABS: Basophils # 0.3 K/mcL (0.0-0.2); Lymphocytes # 1.7 K/mcL (0.6-4.6); Neutrophils # 13.5 K/mcL (1.6-8.9)
[2017-09-28 20:58] LABS: Platelet Estimate Increased (Normal); Reactive Lymphocytes Present (Not Present); Toxic Granulation Present (Not Present)
[2017-09-29] MEDS: Acetaminophen 325 MG TABLET PO PRN (02:17)
[2017-09-29 04:28] VITALS: BP 102/68
[2017-09-29] MEDS: *HR* Enoxaparin 40 MG/0.4 ML SYRINGE SQ SCH (08:00)
[2017-09-29] MEDS: MetroNIDAZOLE 500 MG/100 ML 500 MG/100 ML BAG IVPB SCH (08:14)
[2017-09-29 09:51] LABS: Hematocrit 37.7 % (35.3-44.9); Mean Corpuscular HGB Conc 31.8 g/dL (31.6-35.5); Mean Corpuscular Hemoglobin 28.5 pg (28.0-33.3); Mean Corpuscular Volume 89.5 fL (83.0-100.0); Mean Platelet Volume 9.8 fL (9.4-12.4); Nucleated Red Blood Cells 0.1 /100 WBC (0); Platelet Count 826 K/mcL (140-400); Red Blood Count 4.21 M/mcL (3.82-4.97); Red Cell Distribution Width 15.1 % (11.5-14.5)
[2017-09-29 10:06] LABS: BUN/Creatinine Ratio 10 (6-26); Blood Urea Nitrogen 8 mg/dL (6-20); Calcium 8.7 mg/dL (8.6-10.3); Carbon Dioxide 25 mEq/L (23-29); Chloride 108 mEq/L (98-107); Glucose 119 mg/dL (70-105); Osmolality,Calculated 287 (280-300); Potassium 3.3 mEq/L (3.5-5.1); Sodium 139 mEq/L (136-145); eGFR For African Americans > 60 (> 60); eGFR For Non-African Americans > 60 (> 60)
[2017-09-29 10:37] LABS: Eosinophils # 1.5 K/mcL (0.0-0.6); Lymphocytes # 1.3 K/mcL (0.6-4.6); Monocytes # 0.6 K/mcL (0.0-1.3); Neutrophils # 14.6 K/mcL (1.6-8.9)
[2017-09-29 10:38] LABS: Platelet Estimate Increased (Normal)
--- NOTE | 2017-09-29 11:36 | General Surgery Progress Note ---
Date of Encounter: 09/29/17 Time of Encounter: 11:15 Subjective Patient reports: no new complaints, feels better Narrative: General Surgery - patient feeling well; no complaints. tolerating diet without abdominal distention or pain Afebrile, hemodynamically stable but white count has increased to 18.9 with 14.6% neutrophilia. Potassium is also low at 3.3; another electrolytes, BUN, creatinine within normal limits. Impression: Resolution of the patient's abdominal pain, nausea, and vomiting. Patient tolerating diet. Leukocytosis of uncertain etiology, however, may be related to the intra- peritoneal process prompting the patient's presentation to the emergency department and subsequent admission. The patient is currently on Cipro and Flagyl - these should be continued orally if the patient is discharged. The patient wishes to be discharged which is reasonable despite the leukocytosis/neutrophilia. This has been discussed in detail with the patient. The patient may follow up with me as an outpatient on Sunday10/01/17 should her symptoms recur or worsen. Will defer definitive decision to discharge to the primary service but I am available for surgical consultation should the patient's status change. Objective Vital Signs - Last 8 Hours Temp Pulse Resp BP Pulse Ox 09/29/17 04:26 98.9 F 76 14 102/68 97 Intake and Output 09/28/17 09/29/17 09/29/17 23:59 07:59 15:59 Intake Total 900 / 900 100 / 100 Output Total 0 / 0 0 / 0 Balance 900 / 900 100 / 100 Intake: IV Fluids 300 / 300 100 / 100 Cipro Premix 400 MG/200 ML 400 200 / 200 mg In 200 ml @ 200 mls/hr IVPB Q12HR [facility] Rx#:[id number] Flagyl Premix 500 MG/100 ML 500 100 / 100 100 / 100 mg In 100 ml @ 100 mls/hr IVPB Q8HR [facility] Rx#:[id number] Oral 600 / 600 0 / 0 Output: Urine 0 / 0 0 / 0 Other: Weight 71.25 kg Patient Weight 09/29/17 23:59 Weight 71.25 kg - Labs 09/29/17 09:30 09/29/17 09:30 Diabetes panel 09/28/17 09/29/17 Range/Units 17:37 09:30 Sodium 140 139 (136-145) mEq/L Potassium 3.4 L 3.3 L (3.5-5.1) mEq/L Chloride 111 H 108 H (98-107) mEq/L Carbon Dioxide 23 25 (23-29) mEq/L BUN 10 8 (6-20) mg/dL Creatinine 0.77 0.81 (0.60-1.20) mg/dL Glucose 88 119 H (70-105) mg/dL Calcium 8.3 L 8.7 (8.6-10.3) mg/dL Calcium panel 09/28/17 09/29/17 Range/Units 17:37 09:30 Calcium 8.3 L 8.7 (8.6-10.3) mg/dL Pituitary panel 09/28/17 09/29/17 Range/Units 17:37 09:30 Sodium 140 139 (136-145) mEq/L Potassium 3.4 L 3.3 L (3.5-5.1) mEq/L Chloride 111 H 108 H (98-107) mEq/L Carbon Dioxide 23 25 (23-29) mEq/L BUN 10 8 (6-20) mg/dL Creatinine 0.77 0.81 (0.60-1.20) mg/dL Glucose 88 119 H (70-105) mg/dL Calcium 8.3 L 8.7 (8.6-10.3) mg/dL Adrenal panel 09/28/17 09/29/17 Range/Units 17:37 09:30 Sodium 140 139 (136-145) mEq/L Potassium 3.4 L 3.3 L (3.5-5.1) mEq/L Chloride 111 H 108 H (98-107) mEq/L Carbon Dioxide 23 25 (23-29) mEq/L BUN 10 8 (6-20) mg/dL Creatinine 0.77 0.81 (0.60-1.20) mg/dL Glucose 88 119 H (70-105) mg/dL Calcium 8.3 L 8.7 (8.6-10.3) mg/dL Consult Discharge Plan - Plan Referrals: Reza Gomes DO [Primary Care Provider] -
--- NOTE | 2017-09-29 12:02 | Discharge Summary ---
- NOTES TO OUTPATIENT PROVIDER Notes to Outpatient Provider: none Date of Encounter: 09/29/17 Time of Encounter: 11:00 - Discharge Diagnosis (1) Enteritis Priority: Primary Status: Acute (2) Thrombocytosis Priority: Secondary Status: Acute Hospital course: Patient is a 46-year-old female with past medical history significant for Acstro syndrome followed by GI Dr. De La Cruz, Ashley lei, and history of post- operative ileus 15 years ago presents to the ER on 09/27/17 due to abdominal pain. Patient reported of onset of abdominal pain the morning of admission which woke her out of sleep. In addition she also complained of episodes of emesis status she appeared coffee ground but she was unsure if it was food instead. He reported similar episodes as ago which she had an ileus. In the ER, CT of abdomen/pelvis showed diffuse fluid-filled loops of small bowel , which appear mildly dilated and could be related to underlying enteritis with mild ileus versus possible partial obstruction. During patients hospital stay, she was treated for enteritis with IV Cipro/ Flagyl. Patient was able to have a bowel movement and diet was advanced as tolerated. General surgery was also consulted with recommendations for discharge on oral antibiotics and to follow-up as an outpatient. - Time Spent with Patient Total time spent providing and/or coordinating discharge services: Less than 30 minutes - Discharge Medications Prescriptions: Ciprofloxacin [Cipro] 500 mg PO BID #20 tablet metroNIDAZOLE [Metronidazole] 500 mg PO TID #30 tablet Home Medications: Estrogens, Conjugated [Premarin] 0.9 mg PO DAILY 06/28/16 [History] Furosemide [Lasix] 20 mg PO DAILY 09/27/17 [History] Ciprofloxacin [Cipro] 500 mg PO BID #20 tablet 09/29/17 [Rx] metroNIDAZOLE [Metronidazole] 500 mg PO TID #30 tablet 09/29/17 [Rx] Allergies/Adverse Reactions: 3 Allergy/AdvReac Type Severity Reaction Status Date / Time morphine AdvReac Nausea Verified 09/27/17 05:10 Date of admission: 09/27/17 12:03 Primary care physician: Reza Gomes - Constitutional Vitals: Temp Pulse Resp BP Pulse Ox 98.9 F 76 14 102/68 97 09/29/17 04:26 09/29/17 04:26 09/29/17 04:26 09/29/17 04:26 09/29/17 04:26 General appearance: Present: no acute distress - Patient Status Disposition: Home, Self-Care Condition: Good - Discharge Instructions Instructions: Ileus (DC) Follow Up With: Reza Gomes DO [Primary Care Provider] -
== END 2017-09-29 13:30 | disposition home or self-care (01) | DRG 392 ==
LOC: 3ANU 05:08 → EMEROO 05:08 → 3ANU 09:38
PROVIDERS: ADMIT Student in an Organized Health Care Education/Training Program; ATTEND Hospitalist

== ENCOUNTER 2018-06-17 22:32 | Observation (INO) ==
[2018-06-17] MEDS ORDERED: Aspirin 81 MG TAB.CHEW PO ONE (22:40)
[2018-06-17 23:11] LABS: Basophils # 0.1 K/mcL (0.0-0.2); Basophils % 0.8 %; Eosinophils # 0.2 K/mcL (0.0-0.6); Eosinophils % 2.8 %; Hematocrit 33.6 % (35.3-44.9); Hemoglobin 11.4 g/dL (11.5-15.4); Immature Granulocytes % 0.2 % (0-4); Lymphocytes % 33.4 %; Mean Corpuscular HGB Conc 33.9 g/dL (31.6-35.5); Mean Corpuscular Hemoglobin 30.6 pg (28.0-33.3); Mean Corpuscular Volume 90.3 fL (83.0-100.0); Monocytes # 0.6 K/mcL (0.0-1.3); Neutrophils # 3.2 K/mcL (1.6-8.9); Platelet Count 226 K/mcL (140-400); Red Blood Count 3.72 M/mcL (3.82-4.97); Red Cell Distribution Width 12.6 % (11.5-14.5); Segmented Neutrophils % 52.8 %
[2018-06-17 23:19] LABS: INR 0.9; Prothrombin Time 10.5 Seconds (9.4-12.1)
[2018-06-17 23:21] LABS: Activated Partial Thrombo Time 31.4 Seconds (26.0-36.0)
--- NOTE | 2018-06-17 23:30 | Emergency Department Note ---
Addendum entered and electronically signed by Donato Guaman DO 06/18/18 00:13: EKG: EKG done at 2238 review by myself and attending shows sinus rhythm at a rate of 80, SC interval 147, QRS 97, QTC 465. No acute ST changes no acute T- wave changes no signs of ischemia. No hypertrophy, heart strain, heart block. No WPW/Brugada/HOCM. No old EKG done 01/31/18 has no acute changes. Original Note: Disposition Clinical Impression: Atypical chest pain, CML (chronic myeloid leukemia) Disposition: Admitted As Inpatient Condition: Fair Time of Disposition: 00:13 Chest Pain HPI - General Chief Complaint: ED Chest Pain Stated Complaint: Chest pain Time Seen by Provider: 06/17/18 22:40 Source: patient, EMS Mode of arrival: ambulatory Limitations: no limitations Vital Signs Reviewed: Yes Nursing Notes Reviewed: Yes - History of Present Illness HPI Narrative: 39-year-old female history CML presents to the emergency department with left- sided chest pain radiating into the left arm she described as 8 out of 10 and describes a dull ache. It lasted for 15 minutes and went away on its own. Patient states this has been coming and going as it happened earlier this weekend where lasted for about 15 minutes for this time it was much more severe in pain. Said no nausea and vomiting with this episode. She does take medication really for CML which is been on that for many years of been no recent changes. Patient does have it is not have any cardiac history no history of hyperlipidemia or hypertension. Patient is currently denying any chest pain at this time says that is now completely subsided. Severity scale (1-10): 0 - Related Data Home Medications Medication Instructions Recorded Confirmed RX: Furosemide [Lasix] 20 mg PO DAILY PRN 09/27/17 06/18/18 Acetaminophen [Tylenol] 500 mg PO BID PRN 11/07/17 06/18/18 Estrogens, Conjugated [Premarin] 0.625 mg PO DAILY 01/22/18 06/18/18 Previous Rx's Medication Instructions Recorded RX: Ondansetron HCl [Zofran] 4 mg PO Q8HR PRN #30 tab 11/07/17 RX: Nilotinib HCl [Tasigna] 300 mg PO BID #120 capsule 04/09/18 Allergies Allergy/AdvReac Type Severity Reaction Status Date / Time morphine AdvReac Nausea Verified 01/22/18 15:24 All systems ED: reviewed and negative except as stated. Review of Systems: As Per HPI Constitutional: Denies: fever, chills, weakness, weight change Eyes: Denies: eye pain, eye discharge, vision change ENT ED: Denies: ear pain, throat pain, dental pain, hearing loss, epistaxis, congestion, dysphagia Cardiovascular: Denies: chest pain, palpitations, dyspnea on exertion, edema, syncope Respiratory: Denies: cough, dyspnea, wheezes, hemoptysis, stridor Gastrointestinal: Denies: abdominal pain, nausea, vomiting, diarrhea, co nstipation, hematemesis, melena, hematochezia Genitourinary: Denies: dysuria, frequency, hematuria, discharge Musculoskeletal: Denies: back pain, neck pain, arthralgia, myalgia Integumentary: Denies: rash, abrasion, lesions Neurological: Denies: headache, weakness, numbness, paresthesias, confusion, abnormal gait, vertigo Psychiatric: Denies: anxiety, depression, suicidal thoughts, homicidal thoughts, auditory hallucinations, visual hallucinations Endocrine: Denies: fatigue Hematological/Lymphatic: Denies: easy bleeding, easy bruising Allergic/Immunologic: Denies: facial swelling, urticaria Chest Pain PMH - Past Medical History Medical history: Reports: kidney stones, other Surgical history: Reports: , cholecystectomy, hysterectomy Psychiatric history: Reports: no psych history - Social History Smoking Status: Never smoker Alcohol use: Reports: none Drug use: Reports: none Physical Exam - General Limitations: no limitations General appearance: alert, in no apparent distress - Head Head exam: atraumatic, normocephalic, normal inspection - Eye Eye exam: Present: normal appearance, PERRL, EOMI - ENT ENT exam: normal exam, normal oropharynx, mucous membranes moist - Neck Neck exam: Present: normal inspection, full ROM, trachea midline - Chest Chest inspection: Present: normal inspection, symmetric chest wall rise - Respiratory Respiratory exam: Present: normal lung sounds bilaterally - Cardiovascular Cardiovascular exam: Present: regular rate, normal rhythm, normal heart sounds - Abdominal Exam Abdominal exam: Present: soft, Non-Tender, normal bowel sounds. Absent: tenderness, distention, guarding, rebound, rigidity - Extremities Exam Extremities exam: Present: normal inspection, full ROM. Absent: tenderness, pedal edema - Expanded Lower Extremity Exam Neurovascular/Tendon exam: Present: normal capillary refill. Absent: pulse deficit, motor deficit, sensory deficit, tendon deficit - Back Exam Back exam: Present: normal inspection, full ROM. Absent: tenderness, CVA tenderness (R), CVA tenderness (L) - Neurological Exam Neurological exam: Present: alert, oriented X3 - Skin Skin exam: Present: warm, dry, intact, normal color Course Vital Signs Temperature 98.0 F 06/17/18 22:36 Pulse Rate 78 06/17/18 22:36 Respiratory Rate 18 06/17/18 22:36 Blood Pressure 124/79 06/17/18 22:36 O2 Sat by Pulse Oximetry 99 06/17/18 22:36 Temperature 98.0 F 06/17/18 22:36 Pulse Rate 74 06/17/18 22:42 Respiratory Rate 18 06/17/18 22:42 Blood Pressure 115/68 06/17/18 22:42 O2 Sat by Pulse Oximetry 97 06/17/18 22:42 Oxygen Delivery Oxygen Delivery Room Air Chest Pain - MDM Narrative Medical decision making narrative: Chest pain workup is going to be done. Patient is not short of breath no tachycardia no hypoxia the only medical history is pertinent is history of CML. I think there is really likelihood of pulmonary embolism and patient also agrees. So we will not get a d-dimer or CT Nallely chest at this time. Patient is control at this plan. Patient has still had any chest pain while she is here. Troponin came back negative EKG had no acute findings. Chest x-ray no acute findings. All other labs were within normal limits. Patient does have the known CML in her leukocytes look normal. There is worried about this possibly being ACS or could be an esophageal spasm. Due to patient's CML as well as the sudden onset of chest pain and the diaphoresis that she had I would feel more comfortable the patient is admitted for further evaluation and watching. I spoke with the hospitalist Dr. Sanabria who agreed to admit the patient to their service. Patient is admitted in stable condition. Chest X-Ray 06/17/18 22:41 IMPRESSION: No acute disease. D/ / Rebeca Broussard Cha, MD / Rebeca Broussard Cha, MD Interpreting Provider: Rebeca Broussard Cha, MD - Medical Records Medical records reviewed: Yes I reviewed the patient's medical records. - Lab Data Lab results reviewed: Yes I reviewed the patient's lab results. Result diagrams: 06/17/18 23:01 06/17/18 23:01 Lab Results 06/17/18 06/17/18 06/17/18 Range/Units 23:01 23:01 23:01 WBC 6.0 (4.3-11.1) K/mcL RBC 3.72 L (3.82-4.97) M/mcL Hgb 11.4 L (11.5-15.4) g/dL Hct 33.6 L (35.3-44.9) % MCV 90.3 (83.0-100.0) fL MCH 30.6 (28.0-33.3) pg MCHC 33.9 (31.6-35.5) g/dL RDW 12.6 (11.5-14.5) % Plt Count 226 (140-400) K/mcL MPV 10.0 (9.4-12.4) fL Immature Gran % 0.2 (0-4) % Seg Neutrophils % 52.8 % Lymphocytes % 33.4 % Monocytes % 10.0 % Eosinophils % 2.8 % Basophils % 0.8 % Neutrophils # 3.2 (1.6-8.9) K/mcL Lymphocytes # 2.0 (0.6-4.6) K/mcL Monocytes # 0.6 (0.0-1.3) K/mcL Eosinophils # 0.2 (0.0-0.6) K/mcL Basophils # 0.1 (0.0-0.2) K/mcL PT 10.5 (9.4-12.1) Seconds INR 0.9 APTT 31.4 (26.0-36.0) Seconds Sodium 136 (136-145) mEq/L Potassium 3.6 (3.5-5.1) mEq/L Chloride 107 (98-107) mEq/L Carbon Dioxide 22 L (23-29) mEq/L BUN 19 (6-20) mg/dL Creatinine 0.73 (0.60-1.20) mg/dL Est GFR ( Amer) > 60 (> 60) Est GFR (Non-Af Amer) > 60 (> 60) BUN/Creatinine Ratio 26 (6-26) Glucose 122 H (70-105) mg/dL Calculated Osmolality 286 (280-300) Calcium 9.1 (8.6-10.3) mg/dL Troponin I < 0.03 (< 0.04) ng/mL - Radiology Data Radiology results reviewed: Yes I reviewed the patient's radiology results. - EKG Data EKG attestation: Yes I reviewed and interpreted this EKG. Heart Score - Score History: Moderately Suspicious EKG: Normal Age: 45-65 Risk Factors: 1-2 risk factors Troponin: Less than normal limit HEART Score Total: 3 Attestation Statement - Attestation Attestation: Dr. Milian note: Patient was seen in conjunction with resident Dr. Donato Guaman; please see his charting for complete documentation. I spent [id number] time with the patient and I agree with the patient's treatment and disposition. Chest pain to both arms at rest while seated on the couch about an hour ago. Symptoms gradually improved over 10 minutes. Patient was diaphoretic. Mild similar such symptoms over the last couple days both at rest and on exertion. Before 2 days ago she never had chest pain. Admits to eating tomato-based spaghetti an hour prior to event. Patient is not her gallbladder. Known prior Keane's esophagus issues on prior EGD. No significant prodromal symptoms earlier this week. Blood work and EKG reviewed. No troponin elevation at this time. Admitted pain-free to h ospitalist
[2018-06-17 23:32] LABS: BUN/Creatinine Ratio 26 (6-26); Blood Urea Nitrogen 19 mg/dL (6-20); Calcium 9.1 mg/dL (8.6-10.3); Carbon Dioxide 22 mEq/L (23-29); Chloride 107 mEq/L (98-107); Glucose 122 mg/dL (70-105); Osmolality,Calculated 286 (280-300); Potassium 3.6 mEq/L (3.5-5.1); Sodium 136 mEq/L (136-145); eGFR For Non-African Americans > 60 (> 60)
[2018-06-17 23:33] LABS: Troponin I < 0.03 ng/mL (< 0.04)
[2018-06-18] MEDS ORDERED: Naloxone 0.4 MG/ML INJ IVP PRN (02:32)
--- NOTE | 2018-06-18 02:35 | Internal Med History&Physical ---
<Sekou Menard - Last Filed: 06/18/18 04:29> Date of Encounter: 06/18/18 Time of Encounter: 02:34 Internal Medicine - H&P: HPI Chief complaint: Chest Pain Admitted From: Home Plans for Post Hospital Care: Home History of present illness: Ms. 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 Pt notes that she was sitting at home on her couch when she suddenly began feeling crushing, pressure-like heavy chest pain, rated 8/10 that spread from the center of her chest to her back, and down both arms to her elbows. States that she felt as if there was a 'tourniquet that stopped pain at the elbows'. Associated with SOB, diaphoresis, nausea, anxiety and lasted for about 15 minutes. Notes she has had similar feelings of discomfort the past 2 days prior but never to the extent which she felt earlier this evening. Assumed pain was due to overworking herself, and always would resolved after patient sat down. However, today pain began at rest. Pt denies headache, vision changes, neck pain, palpitations, abdominal pain, vomiting, diarrhea, weakness, fatigue. Notes she has had GERD in the past, and states the feeling tonight was very different. Of note, patient is taking Tasigna for treatment of CML, and has taken estrogen supplementation long-term since she had a hysterectomy. Has been receiving chemotherapy since October 2017. Denies recent travel, prolonged immobilization, recent surgery, OCPs, smoking. Denies personal or familial cardiac history, history of DVTs, HTN, HLD, or similar pain in the past. In the ED, pt was seen and examined. Vitals hemodynamically stable. Workup was essentially negative - normal CBC, BMP; negative trops, negative CXR, EKG unchanged from previous. Initial Vitals: T = 98.0; HR = 78; RR = 18; BP = 124/79; O2 = 99% on RA CBC: Within normal limits BMP: Within normal limits Trop: Negative CXR: No acute disease EKG: NSR, HR = 80, SC = 147, QRS = 97, QT = 403; Regular Rhythm; No acute ST Changes; Normal [place] On my examination, pt resting comfortably in bed in no acute distress. Benign physical exam. Vitals stable. Currently denies chest pain, palpitations, headaches, vision changes, neck pain, SOB, nausea, vomiting, diarrhea, diaphoresis, weakness, fatigue. Admitted to hospitalist service for further observation of chest pain. Past Med Surg Social Fam HX - Past Medical History Medical history: kidney stones, other Additional medical history: CHRONIC MYELOID LEUKEMIA Psychiatric history: no psych history - Past Surgical History Surgical History: , cholecystectomy, hysterectomy Additional surgical history: bladder repair - kidney stone removal - colonoscopy - egd - Social History Smoking Status: Never smoker Smokeless Tobacco Status: No Alcohol use: none Drug use: none - Family History Father Hx Family Cancer: Yes (colon and prostate) Internal Medicine - H&P: Meds Furosemide [Lasix] 20 mg PO DAILY PRN 09/27/17 [History] Acetaminophen [Tylenol] 500 mg PO BID PRN 11/07/17 [History] Ondansetron HCl [Zofran] 4 mg PO Q8HR PRN #30 tab 11/07/17 [Rx] Estrogens, Conjugated [Premarin] 0.625 mg PO DAILY 01/22/18 [History] Nilotinib HCl [Tasigna] 300 mg PO BID #120 capsule 04/09/18 [Rx] Allergy/AdvReac Type Severity Reaction Status Date / Time morphine AdvReac Nausea Verified 01/22/18 15:24 All Systems PM: A 10-system review of systems was performed and is negative for pertinent findings except as documented above in the HPI. - Constitutional Constitutional: no chills, no fatigue, no fever(s), no malaise, no weakness - EENT Eyes: no blurry vision, no change in vision Nose, mouth and throat: no facial pain, no neck mass - Cardiovascular Cardiovascular ROS IM: no chest pain, no diaphoresis, no dyspnea, no dyspnea on exertion, no edema, no irregular heart rhythm, no lightheadedness, no palpitations, no syncope - Respiratory Respiratory: no cough, no dyspnea, no dyspnea on exertion - Gastrointestinal Gastrointestinal: no abdominal pain, no constipation, no cramping, no diarrhea, no heartburn, no nausea, no vomiting - Genitourinary Genitourinary: no dysuria - Musculoskeletal Musculoskeletal ROS IM: no myalgias, no neck pain - Integumentary Integumentary IM: no rash - Neurological Neurological ROS: no confusion, no dizziness, no frequent falls, no headache(s) - Psychiatric Psychiatric: no anxiety - Constitutional Vitals: Temp Pulse Resp BP Pulse Ox 98.0 F 74 16 108/65 97 06/17/18 22:36 06/17/18 22:42 06/18/18 00:56 06/18/18 00:56 06/17/18 22:42 General appearance: Present: cooperative, A&O X 3, pleasant, no acute distress, answers questions appropriately Exam: GEN: AOx3; NAD; resting comfortably in bed; pleasant; talkative HEENT: Atraumatic, normocephalic, EOMI, PERRLA, mucous membranes moist; no scleral icterus CARDIO: RRR, no murmurs, rubs, gallops RESP: Non-labored breathing; CTAB; no wheezes, rales, rhonchi ABD: Soft, non-tender, non-distended, bowel sounds present; no rebound guarding NEURO: No focal deficits; CN 2-12 intact EXT: No lower extremity edema b/l; non-tendern; no rashes; distal pulses palp able, regular Internal Med - H&P Results - Labs CBC & Chem 7: 06/17/18 23:01 06/17/18 23:01 Labs: Short CBC 06/17/18 Range/Units 23:01 WBC 6.0 (4.3-11.1) K/mcL Hgb 11.4 L (11.5-15.4) g/dL Hct 33.6 L (35.3-44.9) % Plt Count 226 (140-400) K/mcL Neutrophils # 3.2 (1.6-8.9) K/mcL BMP 06/17/18 23:01 Sodium 136 Potassium 3.6 Chloride 107 Carbon Dioxide 22 L BUN 19 Creatinine 0.73 Glucose 122 H Calcium 9.1 Cardiac Enzymes 06/17/18 Range/Units 23:01 Troponin I < 0.03 (< 0.04) ng/mL - Impressions ITS Impressions Chest X-Ray 06/17/18 22:41 IMPRESSION: No acute disease. D/ / Rebeca Broussard Cha, MD / Rebeca Broussard Cha, MD Interpreting Provider: Rebeca Broussard Cha, MD - Assessment and plan (1) Atypical chest pain Current Visit: Yes Status: Acute Assessment and plan: Ms. 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 Chest pain occurred at rest. Crushing, pressure-like, heavy - in center of chest - rated 8/10 Spread down b/l arms to elbows, and to center of back Associated with SOB, nausea, diaphoresis, anxiety Similar pain over the past 2 days - not this severe Resolved after 15 minutes Currently asymptomatic - comfortable Hx of CML on Tasigna; Hx of hysterectomy - currently on daily estrogen Initial Vitals: T = 98.0; HR = 78; RR = 18; BP = 124/79; O2 = 99% on RA CBC: Within normal limits BMP: Within normal limits Trop: Negative CXR: No acute disease EKG: NSR, HR = 80, SC = 147, QRS = 97, QT = 403; Regular Rhythm; No acute ST Changes; Normal [place]; Unchanged from previous EKG Currently resting comfortably in no acute distress; denies chest pain or any other symptoms; states all symptoms resolved after 15 minutes; PE benign Heart Score: 3 (Highly Suspicious History, Age, negative trops, negative ekg, negative risk factors) S/p 1 dose aspirin in the ED PLAN: Atypical chest pain secondary to ACS vs PE vs Adverse Effect of chemotherapy medication Trend troponins x 3 Follow D-Dimer --> If elevated, follow with CT Angiogram chest - r/o PE Monitor on raw stock dyeing machine tender vitals Repeat EKG with new symptoms (2) CML (chronic myeloid leukemia) Current Visit: Yes Status: Acute Assessment and plan: Hx CML - started on chemotherapy in October 2017 Currently treated with Tasigna PLAN: Follow up outpatient with oncology (3) DVT prophylaxis Current Visit: Yes Status: Acute Assessment and plan: Heparin SQ TID - Time Spent With Patient Total time spent is greater than 50% in coordination of care (as documented) at patient's floor/unit and/or counseling patient: less than 15 minutes <Harley Sanabria - Last Filed: 06/18/18 05:51> Date of Encounter: 06/18/18 Time of Encounter: 05:00 - Constitutional Constitutional: no chills, no fever(s) - EENT Eyes: no blurry vision, no change in vision Nose, mouth and throat: no sore throat - Cardiovascular Cardiovascular ROS IM: chest pain, dyspnea, dyspnea on exertion, no diaphoresis, no palpitations, no syncope - Respiratory Respiratory: no cough, no chest congestion, no excessive phlegm production, no change in phlegm color - Gastrointestinal Gastrointestinal: heartburn, no abdominal pain, no diarrhea, no nausea, no vomiting - Genitourinary Genitourinary: no dysuria, no flank pain, no hematuria - Musculoskeletal Musculoskeletal ROS IM: no arthralgias, no back pain - Integumentary Integumentary IM: no rash - Neurological Neurological ROS: no dizziness, no focal weakness, no frequent falls, no headache(s) - Psychiatric Psychiatric: no anxiety, no depression - Endocrine Endocrine IM: no polydipsia, no polyuria - Allergic/Immunologic Allergic/Immunologic: no GI upset with certain foods - Constitutional Vitals: Temp Pulse Resp BP Pulse Ox 98.2 F 76 14 108/63 98 06/18/18 03:49 06/18/18 03:49 06/18/18 03:49 06/18/18 03:49 06/18/18 03:49 General appearance: Present: A&O X 3, pleasant, no acute distress - Head Head exam: Present: normal inspection - Eye Eye exam: Present: EOMI, PERRL. Absent: scleral icterus - ENT ENT exam: Present: mucous membranes moist, normal exam, normal oropharynx - Neck Neck exam general surgery: Present: full ROM, supple. Absent: tenderness, nuchal rigidity, thyromegaly - Respiratory Respiratory exam: Present: CTAB. Absent: chest wall tenderness, rales, respiratory distress, rhonchi, wheezes - Cardiovascular Cardiovascular exam: Present: RRR, +S1, +S2. Absent: diastolic murmur, systolic murmur - GI/Abdominal GI/Abdominal exam: Present: normal bowel sounds, soft. Absent: guarding, hepat omegaly, mass, rebound, splenomegaly, tenderness - Extremities Exam Extremities exam: Present: full ROM, normal capillary refill, warm, radial pulses palpable and symmetrical. Absent: calf tenderness, joint swelling, pedal edema, tenderness - Back Exam Back exam: Absent: CVA tenderness (L), CVA tenderness (R) - Neurological Exam Neurological exam: Present: alert, CN II-XII intact, oriented X3, no focal deficits, strengths equal and symetr throughout - Psychiatric Psychiatric exam: Present: normal affect, normal mood - Skin Skin exam: Present: dry, intact, warm. Absent: rash Internal Med - H&P Results - Labs CBC & Chem 7: 06/17/18 23:01 06/17/18 23:01 Labs: Short CBC 06/17/18 Range/Units 23:01 WBC 6.0 (4.3-11.1) K/mcL Hgb 11.4 L (11.5-15.4) g/dL Hct 33.6 L (35.3-44.9) % Plt Count 226 (140-400) K/mcL Neutrophils # 3.2 (1.6-8.9) K/mcL BMP 06/17/18 23:01 Sodium 136 Potassium 3.6 Chloride 107 Carbon Dioxide 22 L BUN 19 Creatinine 0.73 Glucose 122 H Calcium 9.1 Cardiac Enzymes 06/17/18 06/18/18 Range/Units 23:01 04:33 Troponin I < 0.03 < 0.03 (< 0.04) ng/mL - EKG Data -: EKG Interpreted by Myself - EKG Data Prior EKG available for review: no EKG comments: 06/18/18 05:47 NSR; no acute ST-T changes - Impressions ITS Impressions Chest X-Ray 06/17/18 22:41 IMPRESSION: No acute disease. D/ / Rebeca Broussard Cha, MD / Rebeca Broussard Cha, MD Interpreting Provider: Rebeca Broussard Cha, MD - Diagnostic Studies Chest x-ray Status: image reviewed by me (negative) - Time Spent With Patient Total time spent is greater than 50% in coordination of care (as documented) at patient's floor/unit and/or counseling patient: - Attending Attestation I discussed the patient [employer] [employer] [place], past medical history, review of systems, lab data, imaging findings, and exam findings with Dr. Menard. I then saw and examined patient independently as well. After my discussion with Dr. Menard, I also was concerned about possible pulmonary embolism. We therefore ordered a d-dimer level STAT, and this came back negative. After talking to her, her chest pain sounds atypical. However, given that she has CML and is on estrogen replacement therapy, she is at increased risk of cardiovascular disease. We will cycle her troponins and proceed with echocardiogram and stress test today. She currently remains chest pain-free. She denies any prior history of clots, prolonged travel, family history of clots, or smoking history. Again, her d-dimer is negative and, thus, essentially rules out DVT and/or PE. Other than my comments above and noted exam findings, I agree with Dr. Menard's assessment and plan.
[2018-06-18] MEDS: *HR* Heparin 5,000 UNIT/ML VIAL SQ SCH ×3 (05:41→21:41)
[2018-06-18] MEDS ORDERED: Ondansetron ODT 4 MG TAB.RAPDIS PO PRN (05:41)
--- NOTE | 2018-06-18 12:58 | Cardiology Consult Note ---
<Angelica Barraza Arlene - Last Filed: 06/18/18 14:49> Date of Encounter: 06/18/18 Time of Encounter: 12:53 Assessment and Plan (1) Abnormal stress test Current Visit: Yes Status: Acute - Stress test concerning for blunted blood pressure response, mild apical and mid anterior ischemia with 1mm ST depression - Pt will need to be on Tasigna for at least the next 3-5 years, and this medication carries a small risk of ischemic cardiac disease - Pt has no personal risk factors, no immediate family cardiac hx - pt is amenable to cardiac cath, scheduled for tomorrow 06/19/18 - Regular diet now, NPO after midnight (2) Atypical chest pain Current Visit: Yes Status: Acute see abn stress test for A/P Discussion w patient/family: The assessment and plan as outlined above was discussed with the patient and/or family members who expressed understanding and agreement. All questions were answered. Thank you for involving us in the care of your patient. Please call with any questions. History of Present Illness Consult date: 06/18/18 Requesting physician: Francoise Young Consult reason: Abnormal stress test Chief complaint: chest pain History of present illness: Ms. 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 Pt has been on Tasugna 600mg daily since October 2017 for CML with expected duration of treatment 3-5 years, and also takes premarin, as well as 20mg Lasix for peripheral edema every 2-3 days as needed. She has never had a workup with cardiology. Family history is positive for paternal grandfather that of an NM in his 50's and father who at 56 from complications with Castro syndrome. Stress test performed 06/18/18 revealed mild apical and mid-anterior ischemia with 1mm ST depression. Echo showed EF 60-65%, with mild TC regurgitation and no pulmonary HTN. Past Med Surg Social Fam HX - Past Medical History Medical history: kidney stones, other (Castro Syndrome) Additional medical history: CHRONIC MYELOID LEUKEMIA Psychiatric history: no psych history - Past Surgical History Surgical History: , cholecystectomy, hysterectomy Additional surgical history: bladder repair - kidney stone removal - colonoscopy - egd - Social History Smoking Status: Never smoker Smokeless Tobacco Status: No Alcohol use: none Drug use: none - Family History Father Hx Family Cancer: Yes (colon and prostate) Paternal Grandfather Age at : 55 Hx Family Cardiac Disorders: Yes ( of heart attack) Medications and Allergies Furosemide [Lasix] 20 mg PO DAILY PRN 09/27/17 [History] Acetaminophen [Tylenol] 500 mg PO BID PRN 11/07/17 [History] Ondansetron HCl [Zofran] 4 mg PO Q8HR PRN #30 tab 11/07/17 [Rx] Estrogens, Conjugated [Premarin] 0.625 mg PO DAILY 01/22/18 [History] Nilotinib HCl [Tasigna] 300 mg PO BID #120 capsule 04/09/18 [Rx] Allergy/AdvReac Type Severity Reaction Status Date / Time morphine AdvReac Nausea Verified 01/22/18 15:24 All Systems Review: The remainder of the systems were reviewed and are negative - Constitutional Constitutional: no chills, no fever(s) - Cardiovascular Cardiovascular: chest pain at rest, diaphoresis, leg edema - Respiratory Respiratory: dyspnea - Gastrointestinal Gastrointestinal: nausea Physical Examination Vital Signs, Last 4 Hours Temp Pulse Resp BP Pulse Ox 06/18/18 11:30 98.0 F 74 16 82/48 98 General: Conversant, No Apparent Distress HEENT: Atraumatic, Normocephaly, Mucus Membranes Moist Neck: No JVD, Normal carotid pulses Cardiac: Reg Rate and Rhythm, Normal S1 and S2, No Murmur Lungs: Normal Breath Sounds, No Wheeze, Rales, Rhonchi Neuro: Alert and responsive, No focal deficits noted Abdomen: Soft, Non-Tender Skin: No rashes noted on visualized skin Musculoskeletal: No Chest Wall Tenderness Extremities: No Clubbing, No Cyanosis, No Edema, Other (2+ posterior tibialis right, 1+ PT left) Results 06/17/18 23:01 06/17/18 23:01 Lab Results 06/17/18 06/17/18 06/17/18 23:01 23:01 23:01 WBC 6.0 Hgb 11.4 L Hct 33.6 L Plt Count 226 INR 0.9 APTT 31.4 D-Dimer Sodium 136 Potassium 3.6 Chloride 107 Carbon Dioxide 22 L BUN 19 Creatinine 0.73 Glucose 122 H Calcium 9.1 Troponin I < 0.03 06/18/18 06/18/18 06/18/18 04:33 04:33 10:42 WBC Hgb Hct Plt Count INR APTT D-Dimer 350 Sodium Potassium Chloride Carbon Dioxide BUN Creatinine Glucose Calcium Troponin I < 0.03 < 0.03 - Imaging and Cardiology Chest Xray: report reviewed, image reviewed Stress Test: report reviewed Echo: report reviewed, image reviewed Consult Discharge Plan - Plan Referrals: Reza Gomes DO [Primary Care Provider] - <RenatogiseleNandini - Last Filed: 06/18/18 15:26> Date of Encounter: 06/18/18 - Attending Attestation I examined this patient and my medical decision-making was reviewed with the Resident Physician. I agree with the documented findings, disposition and treatment plan as described. Ms. Giang presents with an episode of chest pain. No personal risk factors for CVD. Is on chemotherapeutic agent, Tasigna which can cause ischemic heart disease. On exam, AAOx3, NAD, resting comfortably No concerning exam findings Vital signs stable Labs unremarkable Stress testing images personally reviewed: anterior wall perfusion defect, ST depressions with exercise are nonspecific, patient had chest pain, blunted blood pressure response to exercise Impression: 1. Abnormal stress test: Patient's stress test demonstrated multiple abnormalities as demonstrated above. Is on Tasigna for CML which can cause ischemic heart disease. Discussed patient's options. Given the stress test findings, presentation and use of Tasigna, would recommend proceeding with [facility]. The R/B/A of the procedure were discusssed in detail with patient and family at bedside. All questions answered. Patient expressed understanding and acceptance of risk and has decided to proceed. Assessment and Plan Discussion w patient/family: The assessment and plan as outlined above was discussed with the patient and/or family members who expressed understanding and agreement. All questions were answered. Thank you for involving us in the care of your patient. Please call with any questions. History of Present Illness History of present illness: Ms. Giang is a 47 year old female All Systems Review: The remainder of the systems were reviewed and are negative Physical Examination Vital Signs, Last 4 Hours Temp Pulse Resp BP Pulse Ox 06/18/18 11:30 98.0 F 74 16 82/48 98 Results 06/17/18 23:01 06/17/18 23:01 Lab Results 06/17/18 06/17/18 06/17/18 23:01 23:01 23:01 WBC 6.0 Hgb 11.4 L Hct 33.6 L Plt Count 226 INR 0.9 APTT 31.4 D-Dimer Sodium 136 Potassium 3.6 Chloride 107 Carbon Dioxide 22 L BUN 19 Creatinine 0.73 Glucose 122 H Calcium 9.1 Troponin I < 0.03 06/18/18 06/18/18 06/18/18 04:33 04:33 10:42 WBC Hgb Hct Plt Count INR APTT D-Dimer 350 Sodium Potassium Chloride Carbon Dioxide BUN Creatinine Glucose Calcium Troponin I < 0.03 < 0.03
--- NOTE | 2018-06-18 13:03 | Electrocardiograph Report ---
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
--- NOTE | 2018-06-18 15:06 | Internal Med Progress Note ---
Hospitalist Progress Note - Encounter Date of Encounter: 06/18/18 Time of Encounter: 11:00 - Subjective Interval History: Ms. Giang is a 47 year old female with PMHx CML on oral chemo with Tasigna, followed by oncology who presents to the ED with chest pain this evening. Pt notes that she was sitting at home on her couch when she suddenly began feeling crushing, pressure-like heavy chest pain, rated 8/10 that spread from the center of her chest to her back, and down both arms to her elbows. States that she felt as if there was a 'tourniquet that stopped pain at the elbows'. Associated with SOB, diaphoresis, nausea, anxiety and lasted for about 15 minutes. Patient was admitted in the hospital and placed on traffic monitor specialist. Her serial troponin came back is negative. She denied any active chest pain now. - Exam Vitals: Temp Pulse Resp BP Pulse Ox 98.0 F 74 16 82/48 98 06/18/18 11:30 06/18/18 11:30 06/18/18 11:30 06/18/18 11:30 06/18/18 11:30 Exam: Gen: Alert, awake, Oriented to time,place and person Chest: Diminished breath sounds B/L, No wheezing, No crackles, No rales Heart: S1S2+ RRR No murmurs Abd: Soft, NT, BS +, No organomegaly Ext: No edema, pulses are palpable, No calf tenderness Neuro : Benign findings Skin: No rash. - Assessment and Plan (1) Chest pain Current Visit: Yes Status: Acute Assessment and Plan: so far negative troponin cont ASA 81 mg daily if BP allows rios consider low dose Metoprolol will check FLP in AM her stress test came back as abnormal with mild apical and mid anterior ischemia present on perfusion study.. She also had blunt blood pressure response to exercise as well as some EKG changes. Consider cardiology for further evaluation scheduled for left heart catheterization the morning (2) Abnormal stress test Current Visit: Yes Status: Acute Assessment and Plan: See above (3) CML (chronic myeloid leukemia) Current Visit: Yes Status: Acute Assessment and Plan: Continue home oral medication for now will talk to Heme Onc about Tasigna side effects too (4) DVT prophylaxis Current Visit: Yes Status: Acute Assessment and Plan: on SQ heparin - Time Spent with Patient Total time spent is greater than 50% in coordination of care (as documented) at patient's floor/unit and/or counseling patient: Internal Medicine: Result - Labs CBC & Chem 7: 06/17/18 23:01 06/17/18 23:01 Labs: Short CBC 06/17/18 Range/Units 23:01 WBC 6.0 (4.3-11.1) K/mcL Hgb 11.4 L (11.5-15.4) g/dL Hct 33.6 L (35.3-44.9) % Plt Count 226 (140-400) K/mcL Neutrophils # 3.2 (1.6-8.9) K/mcL BMP 06/17/18 23:01 Sodium 136 Potassium 3.6 Chloride 107 Carbon Dioxide 22 L BUN 19 Creatinine 0.73 Glucose 122 H Calcium 9.1 Cardiac Enzymes 06/17/18 06/18/18 06/18/18 Range/Units 23:01 04:33 10:42 Troponin I < 0.03 < 0.03 < 0.03 (< 0.04) ng/mL - ABG Interpretation ABG results: PT/INR, D-dimer PT 10.5 Seconds (9.4-12.1) 06/17/18 23:01 D-Dimer 350 ng/mLFEU (0-500) 06/18/18 04:33 - Impressions Impressions Chest X-Ray 06/17/18 22:41 IMPRESSION: No acute disease. D/ / Rebeca Broussard Cha, MD / Rebeca Broussard Cha, MD Interpreting Provider: Rebeca Broussard Cha, MD Echocardiogram 06/18/18 05:39 Impressions: LVEF 60-65%. Normal LV chamber size, wall thickness and function. Normal right ventricular structure and function. Mild tricuspid regurgitation. No pulmonary hypertension. Left Ventricular Wall Motion: Rest Echo Findings All wall segments showed normal motion. Findings: Study Quality * Technically adequate exam. ECG Findings * Normal sinus rhythm. Left Ventricle * LVEF 60-65%. * Normal LV chamber size, wall thickness and function. * Normal left ventricular diastolic function. * Definity echo contrast was not used. Right Ventricle * Normal right ventricular structure and function. Left Atrium * Normal left atrial size. Right Atrium * Normal right atrial size. Interatrial Septum * Interatrial septum not well evaluated. * No evidence of PFO by color Doppler. Aortic Valve * Trileaflet aortic valve. * Trileaflet aortic valve with normal function. * No aortic stenosis. * No aortic regurgitation. Mitral Valve * Normal mitral valve structure and function. * No mitral stenosis. * Trace mitral regurgitation. Tricuspid Valve * Normal tricuspid valve structure and function. * No tricuspid stenosis. * Mild tricuspid regurgitation. * Estimated RVSP is 27 mmHg. * Estimated RA pressure is 8 mmHg. * No pulmonary hypertension. Pulmonic Valve * Normal pulmonic valve structure and function. * No pulmonic stenosis. * No pulmonic regurgitation. Aorta * Normally sized aortic root. Pericardium * The pericardium appears normal. IVC * Normal IVC dimensions and inspiratory collapse. Consult Discharge Plan - Plan Referrals: Reza Gomes DO [Primary Care Provider] -
[2018-06-18] MEDS ORDERED: Nitroglycerin 0.4 MG TAB.SUBL SL PRN (15:19)
[2018-06-18] MEDS: NILOTINIB HCL 300 MG PO SCH ×2 (16:03→21:40)
[2018-06-19 05:12] LABS: Chol/HDL Ratio 3.5 (0-4.9)
[2018-06-19] MEDS: *HR* Heparin 5,000 UNIT/ML VIAL SQ SCH ×2 (06:18→15:49)
[2018-06-19] MEDS ORDERED: Aspirin Enteric Coated 81 MG Tablet PO SCH (09:00)
[2018-06-19] MEDS ORDERED: Verapamil 5 MG/2 ML VIAL ONE (09:08)
[2018-06-19] MEDS ORDERED: 0.9 % Sodium Chloride 1,000 ML ONE (09:08)
[2018-06-19] MEDS ORDERED: Heparin 1,000 UNITS/500 mL 500 ML ONE (09:08)
[2018-06-19] MEDS ORDERED: *HR* Heparin 10,000 UNIT/10 ML VIAL ONE (09:09)
[2018-06-19] MEDS ORDERED: Nitroglycerin 1,000 MCG/10 ML VIAL IV ONE (09:09)
[2018-06-19] MEDS ORDERED: ISOVUE-370 200 ML INFUS..BTL ONE (09:09)
[2018-06-19] MEDS ORDERED: *HR* Midazolam HCl 5 MG/5 ML VIAL IVP ONE (09:27)
[2018-06-19] MEDS ORDERED: *HR* FentaNYL (PF) 100 MCG/2 ML VIAL ONE (09:27)
--- NOTE | 2018-06-19 09:35 | Pre-Sedation Evaluation ---
Pre-sedation evaluation - Pre-sedation checklist Date of procedure: 06/19/18 Procedure: Heart Cath Recent Vitals: Last Vital Signs Temp 98.5 F 06/19/18 07:20 Pulse 73 06/19/18 07:20 Resp 16 06/19/18 07:20 BP 109/66 06/19/18 07:20 Pulse Ox 97 06/19/18 07:20 H&P (including ROS) documented in medical record: Yes Previous reaction to sedatives/anesthetics: No Dietary Status: NPO after Midnight Dentition: No loose teeth or bridges ASA Classification *see protocol: CLASS II-Mild systemic disease Plan of Care: Pt appropriate candidate for procedure/moderate/conscious sedation, Risks/benefits of procedure/sedation discussed w/ patient/family Cardiac Registry (Cardio Only) - Functional Capacity Functional Capacity: >=4 METS with symptoms - Clincal Frailty Scale Clinical Frailty Scale: Managing Well
--- NOTE | 2018-06-19 10:10 | Invasive Diagnostic Lab Proc ---
Name: Ana Giang Date of Study: 06/19/2018 Date: 1970 Ht: 66.1in Medical Record#: [id number] Age: 47 Wt: 159.84lb Gender: Female BSA: 1.82 Order #: [id number] BMI: 25.69 Physicians Procedure Physician: James Velazquez MD, FACC Referring MD: Referring MD: Staff Name Position Time In Winnie Cisse RN Certified Registered Nurse Practitioner 09:12 AM Miguel Angel Granger RT (R) Monitor 09:13 AM GonzalezCoty RT (R) Scrub 09:13 AM Indications Indication Abnormal Test - Stress Procedures Performed Procedure L HRT ARTERY/VENTRICLE ANGIO Pre-Procedure Checklist Informed consent is complete signed and on chart. H&P is on chart. ID band is on and ID verified with patient. Patient NPO for procedure The procedure was described for the patient and questions were answered. Blood Pressure: 109/66 ECG is on chart. Rhythm: NSR Plan of Care Patient will tolerate the procedure without complications. Adequate level of comfort will be maintained. Hemodynamics will remain stable Patient will recover from procedure without complications. Respiratory function will be maintained. Cardiac rhythm will remain stable. Patient temperature will be maintained. Patient and/or family have verbalized understanding of the procedure. Patient Education Chief Complaint/Reason for Test: Cardiac Cath Developmental Category: Adult (18-64 years) Developmentally Appropriate for Age: Yes Learning Barriers: None Education Needs: Procedure Education Method: Verbal Information Taught: Cardiac Cath Educational Evaluation: Able to repeat information Intravenous Access Time IV Size Location DC'd Fluid/Drip Rate Units RN 09:14 AM 20g 1 /" Patent On Arrival Lt Arm 0.9NaCl 25 ml/hr Winnie Cisse RN Allergies morphine Vital Signs Time BP (mmHg) HR (bpm) O2 Sat. RR (bpm) LOC 09:14 AM 109 / 66 73 97 % 16 5 = Fully awake and oriented or at pre-proc level 09:17 AM / % 5 = Fully awake and oriented or at pre-proc level 09:17 AM / % 4 = Oriented but drowsy 09:32 AM / % 4 = Oriented but drowsy 09:25 AM 114 / 68 71 100 % 13 09:30 AM 106 / 59 75 100 % 25 09:35 AM 97 / 55 69 99 % 18 09:40 AM 93 / 54 72 99 % 16 09:45 AM 97 / 56 92 99 % 17 09:50 AM 97 / 52 88 99 % 15 09:55 AM 98 / 63 80 98 % 16 09:47 AM / % 5 = Fully awake and oriented or at pre-proc level Procedural Medications Time Medication Dose Units Method Given By 09:22 AM Oxygen 2 L/min nasal cannula Winnie Cisse RN 09:29 AM Versed 3 mg Intravenous Winnie Cisse RN 09:29 AM Fentanyl 50 mcg Intravenous Winnie Cisse RN 09:40 AM Versed 1 mg Intravenous Winnie Cisse RN 09:41 AM Fentanyl 25 mcg Intravenous Winnie Cisse RN 09:41 AM Lidocaine 2% 1 ml Subcutaneous James Velazquez MD, FAC 09:43 AM Heparin 4000 units Nitroglycerin 200 mcg Verapamil 2.5 mg Intraarterial James Velazquez MD, [facility] ASA Classification: CLASS II- Mild systemic disease (i.e. well-controlled diabetes, hypertension, asthma, cigarette smoking) Veto Score Preprocedure Postprocedure Activity 2- Moves 4 extremities sustained head lift Activity 2- Moves 4 extremities sustained head lift Circulation 2- SBP +/= 20 points of pre-anesthetic level Circulation 2- SBP +/= 20 points of pre-anesthetic level Consciousness 2- Awake and alert oriented x 3 Consciousness 2- Awake and alert oriented x 3 O2 Saturation 2- Able to maintain O2 satruation of 92% on room air O2 Saturation 2- Able to maintain O2 satruation of 92% on room air Respiratory 2- Able to deep breathe and cough well Respiratory 2- Able to deep breathe and cough well Total Score 10 Total Score 10 Contrast Agent: Isovue Diagnostic Contrast: 35 ml Total Contrast: 35 ml Fluoro Dose: 1085 mGy Procedure Log Time Note Enter By 09:13 AM Winnie Cisse RN Position: Certified Registered Nurse Practitioner Time in: 09:12 09:13 AM Miguel Angel Granger RT (R) Position: Monitor Time in: :13 09:13 AM Coty Roth RT (R) Position: Scrub Time in: 09:13 09:13 AM Patient charges- Angio tray pack, Navilyst 3mm J, Pulse Oximetry and ACIST tubing and transducer 09:16 AM CathStat 09:16 AM Pt arrived to laboratory animal caretaker 2 at 09:16 [place] [id number] 09:16 AM Case Delayed No 17 AM Time: 09:16 Patient comfortable and pain free: Yes :17 AM Time: :17LOC: 5 = Fully awake and oriented or at pre-proc level :20 AM Physician arrived 09:20 [email or web address] 24:20 AM ASA Class CLASS II- Mild systemic disease (i.e. well-controlled diabetes, hypertension, asthma, cigarette smoking) [email or web address] 24:20 AM Meet and greet completed [facility] 24:20 AM Sign in performed according to hospital policy. Informed consent was obtained. :20 AM Procedure start : [email or web address] 24: AM Hair removed from procedure site in procedure lab using clippers. Bilateral groin prepped with Chloraprep by Coty Roth), then patient was draped. Skin intact. : AM Time: :22 Oxygen on at 2 L/min per nasal cannula by Winnie Cisse RN [place] [id number] :23 AM Recorded ECG: HR=74 Condition=Condition 1 09:23 AM Vitals capture started with the following parameters, Patient=Adult, Interval=5 min, Initial Xqhdzojc=681 mmHg, Deflation Rate=5 mmHg, Cuff placed on Right Arm 09:23 AM Vitals capture stopped. 09:24 AM Vitals capture started with the following parameters, Patient=Adult, Interval=5 min, Initial Sllzruyr=149 mmHg, Deflation Rate=5 mmHg, Cuff placed on Right Arm 09:25 AM HR=71 bpm, FIRU=558/68 mmhg, JaD6=759.0 %, Resp=13 B/min 09:29 AM Time: 09:29 Versed 3 mg Intravenous Given by Winnie Cisse RN [place] [id number] 09:29 AM Time: :29 Fentanyl 50 mcg Intravenous Given by Winnie Cisse RN [place] [address] 09:30 AM HR=75 bpm, UIRD=065/59 mmhg, RhG4=039.0 %, Resp=25 B/min, EtCO2=32 mmHg 09:32 AM Time: 09:17LOC: 4 = Oriented but drowsy [email or web address] 24:32 AM Time: 09:17 Patient comfortable and pain free: Yes [email or web address] 24:32 AM Pressure channel 1 zeroed. 09:35 AM HR=69 bpm, NIBP=97/55 mmhg, SpO2=99.0 %, Resp=18 B/min, EtCO2=37 mmHg 09:40 AM HR=72 bpm, NIBP=93/54 mmhg, SpO2=99.0 %, Resp=16 B/min, EtCO2=38 mmHg 09:40 AM Time out was performed according to hospital policy. Conscious sedation and anesthesia was achieved (see medication log with in this report above) [email or web address] :41 AM Time: 09:40 Versed 1 mg Intravenous Given by Winnie Cisse RN :41 AM Time: 09:41 Fentanyl 25 mcg Intravenous Given by Winnie Cisse RN [email or web address] :41 AM Time: 09:41 1 ml Lidocaine 2% to right radial Subcutaneous Given by James Velazquez MD, FAC [email or web address] 09:42 AM Access obtained by percutaneous puncture. 4Fr 10cm Terumo Glidesheath sheath placed in right Radial artery. [id number] [email or web address] 09:42 AM 0.035 260cm Navilyst 3mmJ wire [id number] [email or web address] 09:44 AM Time: 09:43 Patient given 4,000 units Heparin, 200 mcg Nitroglycerin, and 2.5 mg Verapamil Intraarterial by James Velazquez MD, [facility]. This is given to reduce risk of vessel spasm and thrombosis. [email or web address] 09:44 AM 5Fr TIG catheter inserted over the wire DNC [email or web address] 09:45 AM HR=92 bpm, NIBP=97/56 mmhg, SpO2=99.0 %, Resp=17 B/min, EtCO2=36 mmHg 09:46 AM LCA angiography performed in multiple views. 2 09:47 AM Recorded Pressure: Ao, HR=90, Condition=Condition 1 (Aorta) Ao 108/71/86 09:47 AM Time: 09:32 Patient comfortable and pain free: Yes [email or web address] 09:47 AM Time: 09:32LOC: 4 = Oriented but drowsy [email or web address] 09:47 AM Lesion found in Proximal LAD. Pre Stenosis: 30 Pre KIN Flow: [email or web address] 09:47 AM Proximal Left Anterior Descending Coronary Artery with 30% stenosis. If graft is supplying this territory, 0 % stenosis. [email or web address] 09:49 AM Lesion found in Mid LAD. Pre Stenosis: 40 Pre KIN Flow: [email or web address] 09:49 AM Mid/Distal Left Anterior Descending Coronary Artery and diagonal branches with 40% stenosis. If graft is supplying this area, 0 % stenosis [email or web address] 09:49 AM RCA angiography performed in multiple views. [email or web address] 09:50 AM HR=88 bpm, NIBP=97/52 mmhg, SpO2=99.0 %, Resp=15 B/min, EtCO2=37 mmHg 09:50 AM Coronary Dominance: right [email or web address] 09:50 AM Lesion found in Proximal RCA. Pre Stenosis: 30 Pre KIN Flow: [email or web address] 09:50 AM Right Coronary, Right Posterior Descending Arteries with Right Posterolateral and Acute Marginal branches with 30 % stenosis. If graft is supplying this area, 0 % stenosis [email or web address] 09:51 AM Catheter removed [email or web address] 09:51 AM 5Fr Pigtail catheter inserted over the wire [facility] [email or web address] 09:52 AM Catheter crossed the aortic valve and was selectively placed in the left ventricle. Pressures recorded on pullback for left heart catheterization. [email or web address] 09:52 AM Bolus angiogram of left Ventricle complete: 10 ml/sec for a total of 20 mls [email or web address] 09:52 AM Recorded Pressure: LV, QS=437, Condition=Condition 1 (Left Ventricle) LV 107/-4/4 09:53 AM Recorded Pressure: LV, Ao, TW=506, Condition=Condition 1 (Left Ventricle) LV 102/-2/0, (Aorta) Ao 101/25/60 09:53 AM Catheter removed [email or web address] 09:54 AM Arterial sheath pulled, Vasc Band closure device used and was Successful S/N. [email or web address] 09:55 AM 10 ml air in Vasc Band. [email or web address] 09:55 AM HR=80 bpm, NIBP=98/63 mmhg, SpO2=98.0 %, Resp=16 B/min 09:55 AM Sign out completed: Radiation Dose 133.47 mGy, 1084.72 cGy/cm2 Fluoro Time: 1.6 Isovue 370 - 200ml contrast 35 ml given by James Velazquez MD, [facility]. Complications: None. The patient was discharged out of the laboratory technician in stable condition. Cardiac Rehab Consult needed: NoConfirmed administered medications: Yes [email or web address] 09:55 AM Isovue 370 - 200ml,1 Bottle(s) used. [email or web address] 09:55 AM Estimated Blood Loss: less than 20cc [email or web address] 09:55 AM Post Blood Pressure 98/63 [email or web address] 09:55 AM Post ECG NSR [email or web address] 09:55 AM 09:55 Post Pulses Rt Radial 1+ [email or web address] 09:56 AM 09:56 Post Pulses Bilateral DP & PT 1+ [email or web address] 09:56 AM Information taught Cardiac Cath and Vasc Band [email or web address] 09:56 AM Education needs Procedure, Plan of Care, and Disease Process [email or web address] 09:56 AM Learning barriers :Sedated [email or web address] 09:56 AM Education Methods Verbal [email or web address] 09:56 AM Education evaluation Needs further instruction [email or web address] 09:56 AM Site status No bleeding/hematoma - Rt Wrist as reported by Coty Roth RT (R) at 09:56 [email or web address] 09:56 AM Delay to floor No [email or web address] 09:56 AM Family placed in consult room. [email or web address] 09:56 AM Complications: None [email or web address] 09:57 AM Vitals capture stopped. 10:01 AM Patient out of room: 10:01 [email or web address] 10:02 AM Report given to shay SEGURA Pt taken to Room #37. 10:01 [email or web address] 10:02 AM Time: 09:47LOC: 5 = Fully awake and oriented or at pre-proc level [email or web address] 10:02 AM Time: 09:47 Patient comfortable and pain free: Yes [email or web address] Complications Complication None None Hemodynamics Pressures Site Systolic/A Wave Diastolic/V Wave Mean AO 108 71 86 LV 107 -4 4 LV 102 -2 0 AO 101 25 60 Post Procedure Information Blood Pressure: 98/63 mmHg Rhythm: NSR Post procedural instructions were given Closure Device Time Device Success/Fail 06/19/2018 9:54:00 AM Mechanical Compression Successful Site Checks Time Location Status Staff Sheath In? Note 09:56 AM Rt Wrist No bleeding/hematoma Coty Roth RT (R) Pulses Time Site Pre-Procedure Post-Procedure Note 06/19/2018 9:14:00 AM Bilateral DP & PT 1+ 06/19/2018 9:14:00 AM Bilateral radial 2+ 9:55:00 AM Rt Radial 1+ 9:56:00 AM Bilateral DP & PT 1+ Updated by Miguel Angel Granger RT (R) on 06/19/2018 10:04:55 AM Miguel Angel Granger RT electronically signed on 06/19/2018 10:05:19 AM with status of Final
--- NOTE | 2018-06-19 14:27 | Discharge Summary ---
- NOTES TO OUTPATIENT PROVIDER Notes to Outpatient Provider: Follow up with PCP in one week. Follow up with heme oncologist as schedule Orders not resulted at time of discharge: Pending orders 06/18/18 05:41 NM massimo perf SPECT multi [NM] Routine 06/18/18 15:26 Left Heart Cath [CL Cardiac Catheterization] [CL] Routine Date of Encounter: 06/19/18 Time of Encounter: 14:27 - Discharge Diagnosis (1) Chest pain Priority: Primary Status: Acute Qualifiers: Chest pain type: unspecified Qualified Code(s): R07.9 - Chest pain, unspecified (2) Abnormal stress test Priority: Primary Status: Acute (3) Mild coronary artery disease Priority: Secondary Status: Acute (4) CML (chronic myeloid leukemia) Priority: Secondary Status: Acute (5) DVT prophylaxis Priority: Secondary Status: Acute (6) HLD (hyperlipidemia) Priority: Secondary Status: Acute Qualifiers: Hyperlipidemia type: unspecified Qualified Code(s): E78.5 - Hyperlipidemia, unspecified Hospital course: Ms. Giang is a 47 year old female with PMHx CML on oral chemo with Tasigna, followed by oncology who presents to the ED with chest pain this evening. Pt notes that she was sitting at home on her couch when she suddenly began feeling crushing, pressure-like heavy chest pain, rated 8/10 that spread from the center of her chest to her back, and down both arms to her elbows. States that she felt as if there was a 'tourniquet that stopped pain at the elbows'. Associated with SOB, diaphoresis, nausea, anxiety and lasted for about 15 minutes. Patient was admitted in the hospital and placed on extension service advisor. Her serial troponin came back is negative. She did have nuclear stress test which came back is abnormal with mild apical and mid anterior ischemia present on perfusion study.. She also had blunt blood pressure response to exercise as well as some EKG changes. Patient was evaluated by internet cafe manager who did left heart catheter today which showed mild CAD with 40 %mid LAD. Dr. Velazquez recommend to start her on low dose Imdur 30mg po daily. Unable to start her on any BB since her BP running low in 100's. At this point Cardiology also recommend to switch her chemo medication Tasigna with something else. So talked to her regular Heme Onc Dr. Bhatti who recommend to continue Tasigna since pt CML responded well with it and he is going to f/u on her as an out pt. - Time Spent with Patient Total time spent providing and/or coordinating discharge services: - Discharge Medications Prescriptions: Aspirin Enteric Coated [Aspirin EC] 81 mg PO DAILY #30 tablet. Atorvastatin [Lipitor] 40 mg PO HS #30 tablet Isosorbide MONOnitrate (24 HR) [Imdur] 30 mg PO DAILY #30 tab.er.24h Nilotinib HCl [Tasigna] 300 mg PO BID 30 Days capsule Home Medications: Furosemide [Lasix] 20 mg PO DAILY PRN 09/27/17 [History] Acetaminophen [Tylenol] 500 mg PO BID PRN 11/07/17 [History] Ondansetron HCl [Zofran] 4 mg PO Q8HR PRN #30 tab 11/07/17 [Rx] Estrogens, Conjugated [Premarin] 0.625 mg PO DAILY 01/22/18 [History] Aspirin Enteric Coated [Aspirin EC] 81 mg PO DAILY #30 tablet. 06/19/18 [Rx] Atorvastatin [Lipitor] 40 mg PO HS #30 tablet 06/19/18 [Rx] Isosorbide MONOnitrate (24 HR) [Imdur] 30 mg PO DAILY #30 tab.er.24h 06/19/18 [Rx] Nilotinib HCl [Tasigna] 300 mg PO BID 30 Days capsule 06/19/18 [Rx] Allergies/Adverse Reactions: Allergy/AdvReac Type Severity Reaction Status Date / Time morphine AdvReac Nausea Verified 01/22/18 15:24 Date of admission: 06/18/18 00:22 Primary care physician: Reza Gomes DO Consults: 06/18/18 11:23 Consult to Cardiology [CONS] Routine Comment: Consulting Provider: Cardiology Ave Reason for Consult: Abnormal stress test Time Notified: 11:23 Call Completed: Yes - Constitutional Vitals: Temp Pulse Resp BP Pulse Ox 98.5 F 73 16 109/66 97 06/19/18 07:20 06/19/18 07:20 06/19/18 07:20 06/19/18 07:20 06/19/18 07:20 General appearance: Present: A&O X 3, pleasant, no acute distress Exam: Gen: Alert, awake, Oriented to time,place and person Chest: Diminished breath sounds B/L, No wheezing, No crackles, No rales Heart: S1S2+ RRR No murmurs Abd: Soft, NT, BS +, No organomegaly Ext: No edema, pulses are palpable, No calf tenderness Neuro : Benign findings Skin: No rash. - Patient Status Disposition: Home, Self-Care Condition: Fair Overall status at discharge: patient is back to baseline - Discharge Instructions Follow Up With: Reza Gomes DO [Primary Care Provider] - James Velazquez MD [Partnered Physician] - Sanjiv Bhatti MD [Partnered Physician] - - Diet and Activity Activity: increase activity as tolerated Diet: low salt diet
--- NOTE | 2018-06-19 14:27 | Event Note ---
Date of Encounter: 06/19/18 Time of Encounter: 14:23 - Cardiology Event Note S/P C this AM. 40% mLAD lesion. Medical management recommended, no intervention. Final cath report pending. Continue ASA, Statin, Imdur. Cardiology signing off. Reconsult PRN. Follow-up with PCP outpt.
[2018-06-19] MEDS: NILOTINIB HCL 300 MG PO SCH (15:49)
[2018-06-19 17:00] VITALS: BP 121/74
[2018-06-20] MEDS ORDERED: Isosorbide MONOnitrate (24 HR) 30 MG TAB.ER.24H PO SCH (09:00)
== END 2018-06-19 16:45 | disposition home or self-care (01) ==
LOC: EMEROOARM 22:32 → 3BNU 22:32 → SUATTDRO 06-18 00:22 → 3BNU 06-18 01:14
PROVIDERS: ADMIT Pediatrics; ATTEND Family Medicine